=== PATIENT | female | born 1990 | race Hispanic/Latino ===

== ENCOUNTER 2021-11-14 09:14 | Emergency (ER) | payer SELFPAY ==
[2021-11-14 09:27] VITALS: BP 106/71; PULSE 77; RESP 18; TEMP 36.6; O2SAT 99
--- NOTE | 2021-11-14 09:44 | ED.EAR ---
HPI - Ear Problem General Chief complaint: Ear Stated complaint: Right Ear Pain Time Seen by Provider: 11/14/21 09:44 History of Present Illness HPI Narrative: Jade Mario is a 31 yo female with PMH [facility] ear pain that started 2 days ago. Has post nasal drip, no fever, no N/V/D Related Data Allergies Allergy/AdvReac Type Severity Reaction Status Date / Time No Known Allergies Allergy Verified 11/14/21 09:41 Review of Systems Review of Systems: CONSTITUTIONAL: Denies fever, chills, sweats. EYES: Denies visual changes, redness, discharge. ENT: Denies rhinorrhea, congestion, sore throat, right otalgia. CARDIOVASCULAR: Denies chest pain, palpitations, edema. RESPIRATORY: Denies dyspnea, wheezing, cough GASTROINTESTINAL: Denies abdominal pain, nausea, vomiting, diarrhea. GENITOURINARY: Denies dysuria, hematuria, abnormal discharge SKIN: Denies rash or itching. NEUROLOGIC: Denies numbness, or focal weakness. PSYCHIATRIC: Denies anxiety or depression. PMFSH Social History Social History (Updated 11/14/21 @ 09:50 by Erin Mcbride, PULP GRINDER AND BLENDER) Smoking status: Never smoker Alcohol intake: never Comments At time of signature, I agree with nursing past medical, surgical, social and family history. There is no relevant family history pertinent to the presenting complaint. Exam Narrative: GENERAL: This is a well-nourished, well-developed patient, in mild distress. HEAD: normocephalic, atraumatic. EYES: . Sclera clear/white. Vision is grossly intact. EARS: External ears normal, auditory canals erythema and with edema and drainage on R, . Hearing grossly intact. NOSE: External nose normal without nasal discharge, nares without redness, no rhinorrhea. THROAT: Mucous membranes moist, posterior pharynx erythema NECK: Neck supple, non-tender CARDIOVASCULAR: Regular rate and rhythm without murmurs, gallops, or rubs. RESPIRATORY: Clear to auscultation. Breath sounds equal bilaterally. No wheezes, rales, or rhonchi. GASTROINTESTINAL: Not done, SKIN: warm, intact with no suspicious lesions or rash, good texture and turgor. NEURO: awake, alert, and oriented to person, place and time. There were no obvious focal neurologic abnormalities. Steady gait EXTREMITIES: Normal range of motion. BACK: Nontender without deformity Course Course Emergency Course: Patient comes with right ear pain that started 2 days ago and is gotten to the point where it is throbbing Started on amoxicillin p.o. and eardrops take Tylenol or ibuprofen for pain Level of Care: Express Care Visit Vital Signs Vital signs: Vital Signs Temperature 97.8 F 11/14/21 09:27 Pulse Rate 77 11/14/21 09:27 Respiratory Rate 18 11/14/21 09:27 Blood Pressure 106/71 11/14/21 09:27 Pulse Oximetry 99 11/14/21 09:27 Oxygen Delivery Room Air 11/14/21 09:27 Temperature 97.8 F 11/14/21 09:27 Pulse Rate 77 11/14/21 09:27 Respiratory Rate 18 11/14/21 09:27 Blood Pressure 106/71 11/14/21 09:27 Pulse Oximetry 99 11/14/21 09:27 Oxygen Delivery Room Air 11/14/21 09:27 Medical Decision Making Differential Diagnosis Differential Diagnosis: Otitis media versus otitis externa versus eustachian tube dysfunction Vital Signs Vital Signs: Vital Signs Temperature 97.8 F 11/14/21 09:27 Pulse Rate 77 11/14/21 09:27 Respiratory Rate 18 11/14/21 09:27 Blood Pressure 106/71 11/14/21 09:27 Pulse Oximetry 99 11/14/21 09:27 Oxygen Delivery Room Air 11/14/21 09:27 Temperature 97.8 F 11/14/21 09:27 Pulse Rate 77 11/14/21 09:27 Respiratory Rate 18 11/14/21 09:27 Blood Pressure 106/71 11/14/21 09:27 Pulse Oximetry 99 11/14/21 09:27 Oxygen Delivery Room Air 11/14/21 09:27 Critical Care Time Critical Care Time Critical Care Time: No Discharge Plan Discharge Clinical Impression: Otitis media Qualifiers: Otitis media type: serous Chronicity: acute Laterality: rig
== END 2021-11-14 09:55 | disposition home or self-care (01) ==
PROVIDERS: Emergency Provider Nurse Practitioner
DX: H65.01 Acute serous otitis media, right ear (principal)
CPT/HCPCS: 99203; G0463

== ENCOUNTER 2024-09-14 10:28 | Emergency (ER) | payer SELFPAY ==
[2024-09-14 10:36] VITALS: BP 100/61; PULSE 62; RESP 18; TEMP 36.6; O2SAT 97
--- NOTE | 2024-09-14 10:40 | ED_ITS ---
HPI - Skin/Abscess/Foreign Bdy General Chief complaint: Skin/Abscess/Foreign Body Stated complaint: Skin Issues Source: patient Mode of arrival: ambulatory Limitations: no limitations History of Present Illness HPI narrative: 34 y/o female presented with c/o a skin lesion to the abdomen increasing in size and would like it removed. Pt states the lesion had been present for a long time, but in July she says it started to increase in size. Pt endorses bleeding from the site at times and says the site is tender. Also states her son has disabilities and often pinches it. Pt has used otc meds to remove it without i mprovement. Related Data Home Medications ?Medication ?Instructions ?Recorded ?Confirmed ?Last Taken ?Type etonogestrel 68 mg subdermal 1 implant subdermal ONCE 09/14/24 Unknown History implant (Nexplanon) Allergies Allergy/AdvReac Type Severity Reaction Status Date / Time No Known Allergies Allergy none Uncoded 09/14/24 10:33 Review of Systems Review of Systems: CONSTITUTIONAL: Denies body aches, fever, chills, or sweats. EYES: Denies visual changes, redness, or discharge. ENT: Denies rhinorrhea, congestion CARDIOVASCULAR: Denies chest pain, palpitations, or edema. RESPIRATORY: Denies cough or dyspnea. GASTROINTESTINAL: Denies abdominal pain, nausea, vomiting, or diarrhea. SKIN: reports skin changes to mole MUSCULOSKELETAL: Denies back pain, joint pain, or myalgia. NEUROLOGIC: Denies headache [facility] Social History Social History (System 11/22/21 @ 11:06 by Liliya Bosch) Smoking status: Never smoker Alcohol intake: never Comments At time of signature, I have reviewed and agree with nursing past medical, surgical, social and family history unless otherwise noted. Please see nursing chart for further information. There is no relevant family history pertinent to the presenting complaint Exam Narrative: GENERAL: Well-appearing EYES: conjunctivae clear, and EOMI. ENT: Mucous membranes moist. CHEST: Clear to auscultation. HEART: Regular rate and rhythm. SKIN: Warm, dry. Right upper abdomen with 1cm round raised dark erythematous skin lesion, tender with palpation. No drainage. no surrounding induration. NEURO: Alert and oriented x3. Course Course Emergency Course: Patient is aware of diagnosis, understands and agrees to treatment plan. Anticipatory guidance given. Patient agrees to follow-up as directed and is aware of reasons to seek care at the emergency department. Portions of this record may have been created with voice recognition software Level of Care: Express Care Visit Vital Signs Vital signs: Vital Signs Temperature 97.9 F 09/14/24 10:36 Pulse Rate 62 09/14/24 10:36 Respiratory Rate 18 09/14/24 10:36 Blood Pressure 100/61 09/14/24 10:36 Pulse Oximetry 97 09/14/24 10:36 Oxygen Delivery Room Air 09/14/24 10:36 Temperature 97.9 F 09/14/24 10:36 Pulse Rate 62 09/14/24 10:36 Respiratory Rate 18 09/14/24 10:36 Blood Pressure 100/61 09/14/24 10:36 Pulse Oximetry 97 09/14/24 10:36 Oxygen Delivery Room Air 09/14/24 10:36 Reviewed MDM - Skin/Abscess/Foreign Bdy MDM Narrative Medical decision making narrative: Discussed physical exam findings; right abdominal skin lesion which she reports has been changing in size x2 months. Advised contacting footwear sales representative for further evaluation and management as the site may require biopsy. She is aware we will not excise the lesion today. No apparent infection or surrounding cellulitis. v/u. Advised supportive measures and signs/symptoms to go to the ER. Pt is appropriate for outpt treatment and f/u. Differential Diagnosis Differential diagnosis: Likely abscess of skin or subcutaneous tissue, viral exa nthem, dermatophytosis, urticaria, herpes zoster, cellulitis, eczema, insect bites, impetigo and contact dermatitis Discharge Plan Discharge Clinical Impression: Changing skin lesion Patient Disposition: Home Condition: Stable Instructions: Antibiotic Form, Mole or Nevus Excision (DC) Additional Instructions: Dermatologists: [facility] [address] [phone] [facility] [address] [facility] [phone] [facility] [address] [phone] [facility] [address] [facility] [phone] Recommend establishing with a primary care provider, see the list provided and call today to schedule an appointment please follow up with a footwear sales representative for further evaluation and management of the abdominal skin lesion. Call today to schedule an appointment. Keep the skin lesion covered to reduce friction/rubbing/irritation. Cleanse the site daily with gentle soap and water. Go to the ER for worsening symptoms or concerns. Patient Language: Australian Prescriptions: No Action No Home Medications Follow-up/Referrals: PHYSICIAN,HOOKING MACHINE OPERATOR [Primary Care Provider] -
== END 2024-09-14 11:00 | disposition home or self-care (01) ==
PROVIDERS: Emergency Provider Nurse Practitioner Family
DX: L98.9 Disorder of the skin and subcutaneous tissue, unspecified (principal)
CPT/HCPCS: 99211; G0463

== ENCOUNTER 2024-09-20 13:55 | Emergency (ER) | payer SELFPAY ==
--- OUTSIDE RECORDS SUMMARY | 2024-09-20 13:57 | XMS_ITS | Referral Summary ---
Author Organization [facility] Address [address] [place] [address] Care Team Providers Care Nutter Up Name Role Phone Unknown, Notinfile Primary Care Provider Unavail able Unknown, Notinfile Unavailable Unavailable Encounters Date Type Department Care Team Description 09/16/2024 10:47 AM CDT - 09/16/2024 11:06 AM CDT Emergency [facility] Emergency Department [address] [place] [id number] Inflamed skin tag (Primary Dx) Discharge Disposition: Discharge to home or self care from Last 3 Months Allergies No known active allergies Medications prenat vit [id number], 6 [id number] mg capsule Take by mouth daily. Active acetaminophen (TYLENOL) 500 mg tablet Take 2 tablets (1,000 mg total) by mouth every 6 (six) hours as needed for pain. 120 tablet 9 Active albuterol HFA (PROVENTIL HFA,VENTOLIN HFA,PROAIR HFA) 90 mcg/actuation inhalerIndications :Acute Asthma Attack,Bronchospas m Prevention Inhale 2 puffs every 8 (eight) hours as needed for wheezing. 1 Inhaler 3 9 Active docusate sodium (COLACE) 100 mg capsuleIndications :constipation Take 1 capsule (100 mg total) by mouth daily. 90 capsule 9 Active ferrous sulfate 325 mg (65 mg of elemental iron) tabletIndications: Iron Deficiency Anemia Take 1 tablet (325 mg total) by mouth 3 (three) times a day with meals. 120 tablet 1 9 Active norethindrone (MICRONOR) 0.35 mg tabletIndications: Contraception Take 1 tablet (0.35 mg total) by mouth daily. 28 tablet 12 9 Active albuterol HFA (PROVENTIL HFA,VENTOLIN HFA,PROAIR HFA) 90 mcg/actuation inhaler Inhale 2 puffs every 4 (four) hours as needed for wheezing 1 each 2 5 03/29/19 26 Active Active Problems Problem Noted Date Diagnosed Date Encounter for screening for metabolic disorder 0 04/23/2018 wound infection 04/18/2018 Overview (04/18/2018): [facility] 04/18 - C/f evolving wound infection - Keflex 500mg BID rx given - Close follow up in clinic next week - Educated on keeping wound clean, and dry, as well as regular use of tylenol and ibuprofen to stay on top of incisional pain - Discussed return precautions and s/s of infection Elevated LFTs 04/11/2018 Thrombocytopenia 04/11/2018 UTI (urinary tract infection) 04/11/2018 Hypokalemia 04/11/2018 Lower extremity edema 04/11/2018 Abnormal Pap smear of cervix 04/11/2018 Overview (04/11/2018): [facility] 08/2016 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 No signs/symptoms of infection. # Heme: EBL 700 mL. No symptoms acute blood loss anemia. Thrombocytopenia, most recent plt ___. # CV/Pulm: Influenza A. Oxygen requirement___ # GI/: Tolerating PO. Adequate urine output, void trial now. Continue course of macrobid for UTI. # Pain: Controlled with above regimen. # DVT prophylaxis: Ambulating independently, sequential compression devices in place. # MOC: s/p hormonal IUD placement?? # MOF: # Disposition: Continue routine postoperative care Acute respiratory insufficiency 04/11/2018 Acute blood loss anemia 04/11/2018 Acute pain 04/11/2018 Influenza A 04/10/2018 Overview (04/10/2018): Admit to [facility]. Consents signed and placed in chart. #Elevated LFT -Presented to OSH with LE edema and found to have lab abnormalities -Plt 114, K 2.5, Cr 0.47, AST 55 -Admission labs: Plt 103, Cr 0.48, AST/JEAN PIERRE 59/32 -Normotensive, asymptomatic -Will send acute hepatitis panel #Influenza -Positive for Influenza A at OSH and started on Tamiflu -Tamiflu continued on admission 75mg BID x 5 day course -Droplet precautions -Sats decreased overnight. Will get CXR now #Thrombocytopenia -Plt 103, unknown baseline -Obtain PNL -No evidence of bleeding #UTI -Reports UTI at OSH (no records) and started on macrobid -UCx sent -Continue Macrobid x 5 day course #FWB -04/10: BSUS EFW 2988g (88%), vertex, anterior placenta, JOSE DE JESUS 31.92 (poly) -Reactive and reassuring -On cEFM due to patient being on 1L NC for LUIS ALBERTO #Hypokalemia -Pt reports taking potassium supplements during this -K 2.7 -> 80mg PO KCl given -Plan to repeat labs in 12-24 hours #?LUIS ALBERTO -Snoring when sleeping and desating to low 90s -Placed on 1L NC -cEFM while on oxygen #MWB -Primary OB - Dr. Gan in [place] -Rh positive/Ab negative -Need to obtain records -GBS unknown, collected and sent -MOF: breast -MOC: desires postplacental hormonal IUD Immunizations Immunization Administration Dates Next Due MMR 04/15/2018(Deferred: No longer needed - Patient is Rubella Immune) Social History Tobacco Use Types Packs/Day Years Used Date Smoking Tobacco: Never Smokeless Tobacco: Never Alcohol Use Standard Drinks/Week Comments No 0 (1 standard drink = 0.6 oz pur e alcohol) Personal Safety Answer Date Recorded Have you ever been in or are you currently in a harmful physical or emotional relationship or is someone making you feel afraid or unsafe? Denies 09/16/2024 Comments No Sex and Gender Information Value Date Recorded Sex Assigned at Not on file Legal Sex Female 8:44 PM LIQUOR GALLERY OPERATOR Gender Identity Not on file Sexual Orientation Not on file Last Filed Vital Signs Vital Sign Reading Time Taken Comments Blood Pressure 110/66 09/16/2024 10:18 AM CDT Pulse 84 09/16/2024 10:18 AM CDT Temperature 36.4 C (97.5 F) 09/16/2024 10:18 AM CDT Respiratory Rate 16 09/16/2024 10:21 AM CDT Oxygen Saturation 94% 09/16/2024 10:18 AM CDT Inhaled Oxygen Concentration - - Weight 72.1 kg (159 lb) 03/29/2024 9:04 AM LIQUOR GALLERY OPERATOR Height 165.1 cm (5' 5) 03/29/2024 9:04 AM LIQUOR GALLERY OPERATOR Body Mass Index 26.46 03/29/2024 9:04 AM LIQUOR GALLERY OPERATOR Plan of Treatment Not on file Procedures Procedure Name Priority Date/Time Associated Diagnosis Comments HEPATITIS PANEL, ACUTE Routine 04/10/2018 11:33 AM LIQUOR GALLERY OPERATOR from Last 3 Months or Most Recently Relevant to Health Maintenance Results * Hepatitis panel, acute (04/10/2018 11:33 AM LIQUOR GALLERY OPERATOR) Hep A IgM Nonreactive Nonreactive [facility] Comment: Interpretive Data If test is reported as GRAYZONE, new sample should be drawn in two weeks for testing. Current interpretive data was last revised on 2016. Hep B core IgM Nonreactive Nonreactive [facility] Comment: Interpretive Data If test is reported as GRAYZONE, new sample should be drawn for testing. Current interpretive data was last revised on 2016. Hep C Ab Nonreactive Nonreactive [facility] Comment: Interpretive Data Positive results should be confirmed by a molecular method. If positive, a second separately collected sample should be submitted for Hepatitis C Virus (HCV) RNA Detection and Quantitation by Real-Time Reverse Polysomnography Tech-PCR (RT-PCR). Current interpretive data was last revised on 2016. HepBsAg Nonreactive Nonreactive [facility] Blood specimen (specimen) 04/10/2018 11:33 AM LIQUOR GALLERY OPERATOR 04/10/2018 11:49 AM LIQUOR GALLERY OPERATOR Narrative [facility] - 04/10/2018 2:46 PM LIQUOR GALLERY OPERATOR us Iris Owens MD LAB MICROBIOLOGY - GENER AL ORDERABLES Edited Result - Final [facility] Department of [place] [address] from Last 3 Months or Most Recently Relevant to Health Maintenance Advance Directives For more information, please contact: [phone] * Full Code (Latest Code Status on File) Date Activated Date Inactivated Comments 04/11/2018 6:59 PM 04/15/2018 7:58 PM * Full Code Date Activated Date Inactivated Comments 04/09/2018 9:39 PM 04/11/2018 6:55 PM Care Teams Nutter Up Relationship Specialty Start Date End Date Unknown, Notinfile PCP - General 03/29/24 Unknown, Notinfile 03/29/24
--- OUTSIDE RECORDS SUMMARY | 2024-09-20 13:57 | XMS_ITS | Data Portability ---
Author Organization [facility] Address [address] [place] [address] Care Team Providers Care Supervisor Mixing Name Role Phone MEÑO MCGRATH Hybrid Corn Breeder TERESA MARQUEZ Primary Care Provider [phone] Assessment No assessment recorded. Plan of Treatment Reminders Order Date Submit Date Provider Last Modified By Organization Details Last Modified Time Details Appointments None recorded. Lab CMP, serum or plasma 2023 024 [facility], [address] [facility], [address], [place], [address], 11:18:01 CBC w/ auto diff 2023 024 [facility], [facility] [facility], [address], [place], [address], 11:18:04 lipid panel, serum 2023 024 [facility], [facility] [facility], [address], [place], [address], 11:18:00 HbA1c (hemoglob in A1c), blood 2023 024 [facility], [address] [facility], [address], [place], [address], 4 11:18:02 TSH + free T4, serum 2023 024 [facility], [address] [facility], [address], [place], [address], 4 11:17:59 pap, IG + reflex HPV 2022 023 [facility], [address] Jamel Kim, [facility], [place], [address], 3 20:09:06 CMP, serum or plasma 2020 021 [facility], [address] [facility] [address], [address], [place], [address], 1 15:02:54 CBC w/ auto diff 2020 021 [email or web address] [facility], [address] [place] [address] [address], [address], [place], [address], 1 15:29:44 TSH + free T4, serum 2020 021 [facility], [address] [place] [address] [address], [address], [place], [address], 1 15:02:54 HbA1c (hemoglob in A1c), blood [email or web address], [address] [place] [address] [address], [address], [place], [address], 1 16:42:26 CT + NG + TV, DNA, urine/swa b 2019 020 [facility], [address], [address], [place], [address], 0 20:07:46 test, urine 2019 020 pricilla In-Office Order, Internal Use Only DO Not Attach Compendium DO Not Attach Compendium, Do Not Delete/merge, [id number] 11:46:03 urinalysi s, dipstick 2019 020 [email or web address] In-Office Order, Internal Use Only DO Not Attach Compendium DO Not Attach Compendium, Do Not Delete/merge, [id number] 0 11:46:03 Referral cardiolog ist referral 2020 021 Carlito Bruno MD, [address] [facility], [place], [address], 10:02:39 Procedures None recorded. Surgeries None recorded. Imaging None recorded. Medication Orders multivita min tablet [address] [facility], [address] [place], [address], 14:34:08 Calcium with Vitamin D 600 mg-10 mcg (400 unit) tablet [email or web address] [facility], [address] [place], [address], 14:33:55 Patient TargetsNo targets recorded. 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 Referring Physician: Teresa Marquez, Dog Or Animal Sitter, Encounter Date: 06/21/2020 Results Created Date Observation Date Name Description Value Unit Range Abnormal Flag Note LastModifiedBy Organization Detail LastModifiedTime 04/06/19 20 04/06/2019 urina lysis , dipst ick Leukocytes Trace Not Available In-Offi ce Order Internal Use Only DO Not Attach Compendium DO Not Attach Compendium, Do Not Delete/merge, 04/06/2019 11:45:18 04/06/19 20 04/06/2019 urina lysis , dipst ick Nitrite negati ve Not Available In-Office Order Internal Use Only DO Not Attach Compendium DO Not Attach Compendium, Do Not Delete/merge, 04/06/2019 11:45:18 04/06/19 20 04/06/2019 urina lysis , dipst ick Urobilinogen .2 Not Available In-Of fice Order Internal Use Only DO Not Attach Compendium DO Not Attach Compendium, Do Not Delete/merge, 04/06/2019 11:45:18 04/06/19 20 04/06/2019 urina lysis , dipst ick Protein Negati ve Not Available In-Office Order Internal Use Only DO Not Attach Compendium DO Not Attach Compendium, Do Not Delete/merge, 04/06/2019 11:45:18 04/06/19 20 04/06/2019 urina lysis , dipst ick pH 7.0 Not Available In-Office Order Internal Use Only DO Not Attach Compendium DO Not Attach Compendium, Do Not Delete/merge, 04/06/2019 11:45:18 04/06/19 20 04/06/2019 urina lysis , dipst ick Blood Negati ve Not Available In-Office Order Internal Use Only DO Not Attach Compendium DO Not Attach Compendium, Do Not Delete/merge, 04/06/2019 11:45:18 04/06/19 20 04/06/2019 urina lysis , dipst ick Specific [place] 1.025 Not Available In-Off ice Order Internal Use Only DO Not Attach Compendium DO Not Attach Compendium, Do Not Delete/merge, 04/06/2019 11:45:18 04/06/19 20 04/06/2019 urina lysis , dipst ick Ketone Negati ve Not Available In-Office Order Internal Use Only DO Not Attach Compendium DO Not Attach Compendium, Do Not Delete/merge, [id number] 04/06/2019 11:45:18 04/06/19 20 04/06/2019 urina lysis , dipst ick Bilirubin Negati ve Not Available In-Office Order Internal Use Only DO Not Attach Compendium DO Not Attach Compendium, Do Not Delete/merge, [id number] 04/06/2019 11:45:18 04/06/19 20 04/06/2019 urina lysis , dipst ick Glucose Negati ve Not Available In-Office Order Internal Use Only DO Not Attach Compendium DO Not Attach Compendium, Do Not Delete/merge, [id number] 04/06/2019 11:45:18 04/06/19 20 04/06/2019 pregn sherif test, urine HCG negati ve Not Available In-Office Order Internal Use Only DO Not Attach Compendium DO Not Attach Compendium, Do Not Delete/merge, [id number] 04/06/2019 11:45:01 04/06/19 20 04/08/2019 CT + NG + TV, DNA, urine /swab chlamydia by LESA Negati ve negati ve Not Available [facility] ([facility]) [address] [place], [address], 04/08/2019 20:07:46 04/06/19 20 04/08/2019 CT + NG + TV, DNA, urine /swab gonococcus by LESA Negati ve negati ve Not Available [facility] ([facility]) [address] [place], [address], 04/08/2019 20:07:46 04/06/19 20 04/08/2019 CT + NG + TV, DNA, urine /swab trich vag by LESA Negati ve negati ve Not Available [facility] ([facility]) [address] [place], [address], 04/08/2019 20:07:46 06/21/19 23 06/21/2022 IGP,A PTIMA HPV,A GE GDLN age gdln acog testing 30-65 Not Available [facility] ([facility]) [address] [place], [address], 06/27/2022 20:09:05 06/21/19 23 06/23/2022 IGP, APTIM A HPV, RFX 16/18 ,45 HPV aptima Negati ve negati ve This nucle ic acid ampli ficat ion test detec ts fourt een high- risk HPV types (16,1 8,31, 33,35 ,39,4 5,51, 52,56 ,58,5 9,66, 68) witho ut diffe renti ation . Not Available [facility] ([facility]) [address] [facility], [place], [address], 06/27/2022 20:09:06 06/21/19 23 06/27/2022 IGP, APTIM A HPV, RFX 16/18 ,45 diagnosis: Commen t NEGAT DIAMOND FOR INTRA EPITH ELIAL DINAH N OR MYRA CONTEH . Not Available [facility] ([facility]) [address] [facility], [place], [address], 06/27/2022 20:09:06 06/21/19 23 06/27/2022 IGP, APTIM A HPV, RFX 16/18 ,45 specimen adequacy: Commen t Satis facto ry for evalu ation . Endoc ervic al and/o r squam ous metap lasti c cells (endo cervi felicitas compo nent) are prese nt. Not Available [facility] ([facility]) [address] [facility], [place], [address], 06/27/2022 20:09:06 06/21/19 23 06/27/2022 IGP, APTIM A HPV, RFX 16/18 ,45 clinician provided ICD10: Erika t Z01.4 19 Not Available [facility] ([facility]) [address] [facility], [place], [address], 06/27/2022 20:09:06 06/21/19 23 06/27/2022 IGP, APTIM A HPV, RFX 16/18 ,45 performed by: Commen t Morgan W Drege r, Cytoyudy jimenes (ASCP ) Not Available [facility] ([facility]) [address] [place], [address], 06/27/2022 20:09:06 06/21/19 23 06/27/2022 IGP, APTIM A HPV, RFX 16/18 ,45 . . Not Available [facility] ([facility]) [address] [place], [address], 06/27/2022 20:09:06 06/21/19 23 06/27/2022 IGP, APTIM A HPV, RFX 16/18 ,45 note: Erika jimenes The Pap smear is a scree rivera test desig alf to aid in the detec tion of bolivar ligna nt and malig nant condi tions of the uteri ne cervi x. It is not a diagn ostic proce dure and shoul d not be used as the sole means of detec ting cervi felicitas cance r. Both false -posi tive and false -nega tive repor ts do occur . Not Available [facility] ([facility]) [address] [place], [address], 06/27/2022 20:09:06 06/21/19 23 06/27/2022 IGP, APTIM A HPV, RFX 16/18 ,45 test methodology: Erika jimenes This liqui d based ThinP rep(R ) pap test was scree alf with the use of an image guide sayra palma. Not Available [facility] ([facility]) [address] [place], [address], 06/27/2022 20:09:06 06/21/19 23 06/27/2022 IGP, APTIM A HPV, RFX 16/18 ,45 HPV genotype reflex Erika jimenes Crite laura not met, HPV Genot ype not perfo rmed. Not Available [facility] ([facility]) [address] [place], [address], 06/27/2022 20:09:06 01/27/2001/28/2024 TSH+F REE T4 TSH 1.100 uIU/m L 0.450- 4.500 Not Available [facility] ([facility]) [address] [place], [address], 01/28/2024 11:17:59 01/27/2001/28/2024 TSH+F REE T4 T4,free(dire ct) 1.00 NG/dL 0.82-1 .77 Not Available [facility] ([facility]) [address] [place], [address], 01/28/2024 11:17:59 01/27/2001/28/2024 LIPID PANEL cholesterol, total 164 mg/dL 100-19 9 Not Available [facility] ([facility]) [address] [place], [address], 01/28/2024 11:18:00 01/27/20 24 01/28/2024 LIPID PANEL triglyceride s 185 mg/dL 0-149 above high normal Not Available [facility] ([facility]) [address] [place], [address], 01/28/2024 11:18:00 01/27/20 24 01/28/2024 LIPID PANEL HDL cholesterol 34 mg/dL >39 below low normal Not Available [facility] ([facility]) [address] [place], [address], 01/28/2024 11:18:00 01/27/2001/28/2024 LIPID PANEL VLDL cholesterol felicitas 32 mg/dL 5-40 Not Available [facility] ([facility]) [address] [place], [address], 01/28/2024 11:18:00 01/27/20 24 01/28/2024 LIPID PANEL LDL chol calc ([facility]) 98 mg/dL 0-99 Not Available [facility] ([facility]) [address] [facility] [place], [address], 01/28/2024 11:18:00 01/27/20 24 01/28/2024 COMP. METAB OLIC PANEL (14) glucose 102 mg/dL 70-99 above high normal Not Available [facility] ([facility]) [address] [facility] [place], [address], 01/28/2024 11:18:01 01/27/20 24 01/28/2024 COMP. METAB OLIC PANEL (14) BUN 10 mg/dL 6-20 Not Available [facility] ([facility]) [address] [facility] [place], [address], 01/28/2024 11:18:01 01/27/20 24 01/28/2024 COMP. METAB OLIC PANEL (14) creatinine 0.61 mg/dL 0.57-1 .00 Not Available [facility] ([facility]) [address] [place], [address], 01/28/2024 11:18:01 01/27/20 24 01/28/2024 COMP. METAB OLIC PANEL (14) eGFR 120 mL/mi n/1.7 3 >59 Not Available [facility] ([facility]) [address] [place], [address], 01/28/2024 11:18:01 01/27/20 24 01/28/2024 COMP. METAB OLIC PANEL (14) BUN/creatini ne ratio 16 9-23 Not Available [facility] ([facility]) [address] [place], [address], 01/28/2024 11:18:01 01/27/20 24 01/28/2024 COMP. METAB OLIC PANEL (14) sodium 143 mmol/ L 134-14 4 Not Available [facility] ([facility]) [address] [place], [address], 01/28/2024 11:18:01 01/27/20 24 01/28/2024 COMP. METAB OLIC PANEL (14) potassium 4.0 mmol/ L 3.5-5. 2 Not Available [facility] ([facility]) [address] [facility], [place], [address], 01/28/2024 11:18:01 01/27/20 24 01/28/2024 COMP. METAB OLIC PANEL (14) chloride 107 mmol/ L 96-106 above high normal Not Available [facility] ([facility]) [address] [facility], [place], [address], 01/28/2024 11:18:01 01/27/20 24 01/28/2024 COMP. METAB OLIC PANEL (14) carbon dioxide, total 25 mmol/ L 20-29 Not Available [facility] ([facility]) [address] [facility] [place], [address], 01/28/2024 11:18:01 01/27/20 24 01/28/2024 COMP. METAB OLIC PANEL (14) calcium 9.0 mg/dL 8.7-10 .2 Not Available [facility] ([facility]) [address] [facility] [place], [address], 01/28/2024 11:18:01 01/27/20 24 01/28/2024 COMP. METAB OLIC PANEL (14) protein, total 6.3 g/dL 6.0-8. 5 Not Available [facility] ([facility]) [address] [facility] [place], [address], 01/28/2024 11:18:01 01/27/20 24 01/28/2024 COMP. METAB OLIC PANEL (14) albumin 3.9 g/dL 3.9-4. 9 Not Available [facility] ([facility]) [address] [facility] [place], [address], 01/28/2024 11:18:01 01/27/20 24 01/28/2024 COMP. METAB OLIC PANEL (14) globulin, total 2.4 g/dL 1.5-4. 5 Not Available [facility] ([facility]) [address] [place], [address], 01/28/2024 11:18:01 01/27/20 24 01/28/2024 COMP. METAB OLIC PANEL (14) bilirubin, total 0.3 mg/dL 0.0-1. 2 Not Available [facility] ([facility]) [address] [place], [address], 01/28/2024 11:18:01 01/27/20 24 01/28/2024 COMP. METAB OLIC PANEL (14) alkaline phosphatase 91 IU/L 44-121 Not Available [facility] ([facility]) [address] [place], [address], 01/28/2024 11:18:01 01/27/20 24 01/28/2024 COMP. METAB OLIC PANEL (14) AST (SGOT) 20 IU/L 0-40 Not Available [facility] ([facility]) [address] [place], [address], 01/28/2024 11:18:01 01/27/20 24 01/28/2024 COMP. METAB OLIC PANEL (14) ALT (SGPT) 21 IU/L 0-32 Not Available [facility] ([facility]) [address] [place], [address], 01/28/2024 11:18:01 01/27/20 24 01/28/2024 HEMOG LOBIN A1C hemoglobin A1C 6.0 % 4.8-5. 6 above high normal Predi abete s: 5.7 - 6.4 Diabe jorgea lberto: >6.4 Glyce marcel contr ol for adult s with diabe jorge alberto: <7.0 Not Available [facility] ([facility]) [address] [place], [address], 01/28/2024 11:18:02 01/27/20 24 01/28/2024 CBC WITH DIFFE RENTI AL/PL ATELE T WBC 6.8 x10e3 /uL 3.4-10 .8 Eff ectiv e Decem gabrielle 2023 profi harlan [id number] 5 WBC will be made* * non-o rdera ble as a stand -kp e order code. Not Available [facility] ([facility]) [address] [facility], [place], [address], 01/28/2024 11:18:03 01/27/20 24 01/28/2024 CBC WITH DIFFE RENTI AL/PL ATELE T RBC 4.69 x10e6 /uL 3.77-5 .28 Not Available [facility] ([facility]) [address] [place], [address], 01/28/2024 11:18:03 01/27/20 24 01/28/2024 CBC WITH DIFFE RENTI AL/PL ATELE T hemoglobin 13.3 g/dL 11.1-1 5.9 Not Available [facility] ([facility]) [address] [facility], [place], [address], 01/28/2024 11:18:03 01/27/20 24 01/28/2024 CBC WITH DIFFE RENTI AL/PL ATELE T hematocrit 41.4 % 34.0-4 6.6 Not Available [facility] ([facility]) [address] [facility], [place], [address], 01/28/2024 11:18:03 01/27/20 24 01/28/2024 CBC WITH DIFFE RENTI AL/PL ATELE T MCV 88 fL 79-97 Not Available [facility] ([facility]) [address] [facility], [place], [address], 01/28/2024 11:18:03 01/27/20 24 01/28/2024 CBC WITH DIFFE RENTI AL/PL ATELE T MCH 28.4 pg 26.6-3 3.0 Not Available [facility] ([facility]) [address] [facility], [place], [address], 01/28/2024 11:18:03 01/27/20 24 01/28/2024 CBC WITH DIFFE RENTI AL/PL ATELE T MCHC 32.1 g/dL 31.5-3 5.7 Not Available [facility] ([facility]) [address] [facility], [place], [address], 01/28/2024 11:18:03 01/27/20 24 01/28/2024 CBC WITH DIFFE RENTI AL/PL ATELE T RDW 13.7 % 11.7-1 5.4 Not Available [facility] ([facility]) [address] [facility], [place], [address], 01/28/2024 11:18:03 01/27/20 24 01/28/2024 CBC WITH DIFFE RENTI AL/PL ATELE T platelets 183 x10e3 /uL 150-45 0 Not Available [facility] ([facility]) [address] [facility], [place], [address], 01/28/2024 11:18:03 01/27/20 24 01/28/2024 CBC WITH DIFFE RENTI AL/PL ATELE T neutrophils 58 % notest ab. Not Available [facility] ([facility]) [address] [facility], [place], [address], 01/28/2024 11:18:03 01/27/20 24 01/28/2024 CBC WITH DIFFE RENTI AL/PL ATELE T lymphs 32 % notest ab. Not Available [facility] ([facility]) [address] [facility], [place], [address], 01/28/2024 11:18:03 01/27/20 24 01/28/2024 CBC WITH DIFFE RENTI AL/PL ATELE T monocytes 6 % notest ab. Not Available [facility] ([facility]) [address] [facility], [place], [address], 01/28/2024 11:18:03 01/27/2001/28/2024 CBC WITH DIFFE RENTI AL/PL ATELE T eos 3 % notest ab. Not Available [facility] ([facility]) [address] [facility], [place], [address], 01/28/2024 11:18:03 01/27/20 24 01/28/2024 CBC WITH DIFFE RENTI AL/PL ATELE T basos 1 % notest ab. Not Available [facility] ([facility]) [address] [facility], [place], [address], 01/28/2024 11:18:03 01/27/20 24 01/28/2024 CBC WITH DIFFE RENTI AL/PL ATELE T neutrophils (absolute) 3.9 x10e3 /uL 1.4-7. 0 Not Available [facility] ([facility]) [address] [facility], [place], [address], 01/28/2024 11:18:03 01/27/20 24 01/28/2024 CBC WITH DIFFE RENTI AL/PL ATELE T lymphs (absolute) 2.2 x10e3 /uL 0.7-3. 1 Not Available [facility] ([facility]) [address] [place], [address], 01/28/2024 11:18:03 01/27/20 24 01/28/2024 CBC WITH DIFFE RENTI AL/PL ATELE T monocytes(ab solute) 0.4 x10e3 /uL 0.1-0. 9 Not Available [facility] ([facility]) [address] [place], [address], 01/28/2024 11:18:03 01/27/20 24 01/28/2024 CBC WITH DIFFE RENTI AL/PL ATELE T eos (absolute) 0.2 x10e3 /uL 0.0-0. 4 Not Available [facility] ([facility]) [address] [facility], [place], [address], 01/28/2024 11:18:03 01/27/20 24 01/28/2024 CBC WITH DIFFE RENTI AL/PL ATELE T baso (absolute) 0.0 x10e3 /uL 0.0-0. 2 Not Available [facility] ([facility]) [address] [facility], [place], [address], 01/28/2024 11:18:03 01/27/20 24 01/28/2024 CBC WITH DIFFE RENTI AL/PL ATELE T immature granulocytes 0 % notest ab. Not Available [facility] ([facility]) [address] [facility], [place], [address], 01/28/2024 11:18:03 01/27/20 24 01/28/2024 CBC WITH DIFFE RENTI AL/PL ATELE T immature grans (abs) 0.0 x10e3 /uL 0.0-0. 1 Not Available [facility] ([facility]) [address] [facility], [place], [address], 01/28/2024 11:18:03 Result Notes None recorded. 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 YARA Goodman - [facility] 9 16:04:25 Bacterial vaginosis 511047490 Active 2017 Kevin kim [place] - [facility] 9 16:04:25 Chlamydia l infection 229011887 Active 2017 Kevin kim [place] - [facility] 9 16:04:25 Abnormal cervical Papanicol aou smear 971515439 Active 2017 YARA Goodman - [facility] 9 16:04:25 Chlamydia l infection 509708215 Completed 2017 YARA Goodman - [facility] 9 16:04:25 Group B Streptoco ccus carrier 810150280712 3 Completed 2017 YARA Goodman [facility] 9 16:04:25 Bacterial vaginosis 746484916 Completed 2017 YARA Goodman [facility] 9 16:04:25 Abnormal cervical Papanicol aou smear 878620705 Completed 2017 YARA Goodman [facility] 9 16:04:25 59518547 Completed 201710/28/2017 YARA Goodman [facility] 8 10:46:25 Genital herpes simplex 63341089 Completed 2017 YARA Goodman [facility] 9 16:04:25 Genital herpes simplex 78597663 Active 2017 YARA Goodman [facility] 9 16:04:25 Urogenita l infection by Trichomon as vaginalis 55776505 Completed 2017 YARA Goodman - [facility] 9 16:04:25 Urogenita l infection by Trichomon as vaginalis 34179899 Active 2017 YARA Goodman [facility] 9 16:04:25 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 Procedures Surgical History Date Name Laterality Status Provider Name and Address Organization Details Recorded Time 06/21/19 23 Date of Last Pap Smear completed Yolie Lane [facility] 06/20/2022 10:46:38 05/06/19 19 Control Implant Insertion completed Elza Alva MA [facility] 05/05/2018 15:35:21 04/11/19 19 delivery completed Kevin Gan [facility] 05/05/2018 14:57:14 03/19/19 18 IUD Removal completed Elza Alva MA [facility] 03/19/2017 15:38:16 [address] Yolie [address] MA [facility] 06/20/2022 10:48:45 Imaging Results None recorded. Procedure Notes None recorded. Medical Equipment None Reported. Allergies No known drug allergies Medications Name Sig Start Date Stop Date Status Note LastModified by Organization Details LastModified Time multivitami n tablet Take 1 tablet every day by oral route. 06/21 completed Not Available Not Available Not Available amoxicillin 500 mg capsule TAKE 1 CAPSULE BY MOUTH EVERY 8 HOURS FOR 10 DAYS 06/20 completed Not Available Not Available Not Available Mirena 21 mcg/24 hr (up to 8 years) 52 mg intrauterin e device Take by intrauter ine route. 10/28 completed Not Available Not Available Not Available azithromyci n 250 mg tablet TAKE 2 TABLETS (500 MG) BY ORAL ROUTE ONCE DAILY FOR 1 DAY THEN 1 TABLET (250 MG) BY ORAL ROUTE ONCE DAILY FOR 4 DAYS 11/25 completed Not Available Not Available Not Available ibuprofen 800 mg tablet Take 1 tablet every 6 hours by oral route. 07/07 completed Not Available Not Available Not Available fluconazole 150 mg tablet TAKE 1 TABLET BY MOUTH ONCE DAILY FOR 28 DAYS 01/26 completed Not Available Not Available Not Available metronidazo le 0.75 % (37.5 mg/5 gram) vaginal gel Insert 1 applicato rful every day by vaginal route at bedtime for 5 days. 04/06 completed Not Available Not Available Not Available penicillin V potassium 500 mg tablet Take 1 tablet twice a day by oral route for 10 days. 03/19 completed Not Available Not Available Not Available metronidazo le 500 mg tablet Take 1 tablet twice a day by oral route around the clock for 10 days. 04/06 completed Not Available Not Available Not Available sulfamethox azole 800 mg-trimetho prim 160 mg tablet TAKE 1 TABLET BY MOUTH EVERY 12 HOURS FOR 7 DAYS 01/26 completed Not Available Not Available Not Available aspirin 81 mg tablet,scout yed release Take 2 tablets every day by oral route. 05/05 completed Not Available Not Available Not Available Condoms-Pre m Lubricated Take 1 device as needed by miscell. route as needed. 06/21 completed Not Available Not Available Not Available acyclovir 800 mg tablet Take 1 tablet every day by oral route as directed. 05/05 completed Not Available Not Available Not Available Vitamin tablet Take 1 tablet every day by oral route as directed for 90 days. 07/07 completed Not Available Not Available Not Available DOK 100 mg capsule 07/07 completed Not Available Not Available Not Available cephalexin 500 mg capsule 07/07 completed Not Available Not Available Not Available cyanocobala min (vit B-12) 1,000 mcg/mL injection solution Inject 1 mL every month by intramusc ular route. 05/05 completed Not Available Not Available Not Available ferrous sulfate 325 mg (65 mg iron) tablet Take 1 tablet twice a day by oral route. 07/07 completed Not Available Not Available Not Available progesteron e micronized 200 mg capsule 05/05 completed Not Available Not Available Not Available folic acid 1 mg tablet Take 4 tablets every day by oral route. 05/05 completed Not Available Not Available Not Available norethindro ne (contracept diamond) 0.35 mg tablet 05/05 completed Not Available Not Available Not Available clotrimazol e 1 % topical cream APPLY CREAM TOPICALLY TWICE DAILY 06/20 completed Not Available Not Available Not Available Ventolin HFA 90 mcg/actuati on aerosol inhaler 07/07 completed Not Available Not Available Not Available oxycodone 5 mg tablet 05/05 completed Not Available Not Available Not Available neomycin-po lymyxin-hyd rocort 3.5 mg-10,000 unit/mL-1 % ear drops,susp INSTILL 4 DROPS INTO RIGHT EAR EVERY 8 HOURS FOR 10 DAYS 06/20 completed Not Available Not Available Not Available Seasonique 0.15 mg-30 mcg (84)/10 mcg(7) tablets,3 month dose pack Take 1 tablet every day by oral route. 03/19 completed Not Available Not Available Not Available ferrous gluconate 324 mg (38 mg iron) tablet Take 1 tablet 3 times a day by oral route. 07/07 completed Not Available Not Available Not Available ferrous gluconate 325 mg (27 mg iron) tablet Take 1 tablet twice a day by oral route. 05/05 completed Not Available Not Available Not Available calcium 600 mg (as carbonate)- vitamin D3 10 mcg (400 unit) capsule Take 1 capsule twice a day by oral route. 07/07 completed Not Available Not Available Not Available Calcium with Vitamin D 600 mg-10 mcg (400 unit) tablet Take 1 tablet twice a day by oral route. 06/21 completed Not Available Not Available Not Available Nexplanon 68 mg subdermal implant Inject 1 implant by subcutane ous route. 2018 active Not Available Not Available Not Avai lable ferrous gluconate 246 mg (28 mg iron) tablet Take 1 tablet twice a day by oral route. 05/05 completed Not Available Not Available Not Available calcium 600 mg (as carbonate)- vitamin D3 20 mcg (800 unit) tablet Take 1 tablet twice a day by oral route for 30 days. 10/28 completed Not Available Not Available Not Available Vitamins Plus Low Iron 27 mg iron-1 mg tablet Take 1 tablet every day by oral route. 07/07 completed Not Available Not Available Not Available Vitals Date Recorded Body height Body mass index (BMI) Body weight Systolic And Diastolic Provider Name and Address Organization Details Last Updated DateTime 04/06/2019 157.48 cm 29.6 kg/m2 64076.96 g 90/62 mm[Hg] Elza Alva [place] [facility] 04/06/2019 11:37:57 Date Recorded Body height Body mass index (BMI) Body weight Systolic And Diastolic Provider Name and Address Organization Details Last Updated DateTime 06/20/2022 151.13 cm 40.3 kg/m2 89470.25 g 108/68 mm[Hg] Yolie Lane MA [facility] 06/20/2022 10:53:59 Date Recorded Body weight Body mass index (BMI) Body height Heart rate Oxygen saturation Oxygen saturation in Arterial blood by Pulse oximetry Systolic And Diastolic Provider Name and Address Organization Details Last Updated DateTime 1 54470.9 8 g 39.6 kg/m2 151.13 cm 70 /min 98 % 98 % 104/70 mm[Hg] Yoly Madrid MA [facility] 1 14:38:34 Date Recorded Body height Provider Name an d Address Organization Details Last Updated DateTime 11/22/2022 151.13 cm Jessica Negrete [facility] 023 15:34:28 Date Recorded Body height Body mass index (BMI) Body weight Heart rate Oxygen saturation Oxygen saturation in Arterial blood by Pulse oximetry Systolic And Diastolic Provider Name and Address Organization Details Last Updated DateTime 4 151.13 cm 41.9 kg/m2 23507.9 9 g 60 /min 98 % 98 % 98/62 mm[Hg] Yoly Madrid MA [facility] 4 10:45:23 Social History Question Answer Notes LastModified by Organizat ion Details LastModified Time Tobacco Smoking Status Never Smoker Elza Alva MA null, [facility] 08/28/2016 11:35:32 Do You Have An Advance Directive? No Information not available 08/28/2016 If You Are , What Was Your Level Of Alcohol Consumption Prior To ? None Information not available 10/28/2017 Is Blood Transfusion Acceptable In An Emergency? Yes Information not available 08/28/2016 What Is Your Level Of Caffeine Consumption? Occasional Information not available 08/28/2016 Live With Cats/exposure To Cat Litter No Information not available 10/28/2017 How Much Tobacco Do You Chew? None Information not available 08/28/2016 In The 14 Days Before Symptom Onset, Have You Had Close Contact With A Laboratory-confir med COVID-19 While That Case Was Ill? No Information not available 06/21/2020 In The 14 Days Before Symptom Onset, Have You Had Close Contact With A Person Who Is Under Investigation For COVID-19 While That Person Was Ill? No Information not available 06/21/2020 Have You Been To An Area Known To Be High Risk For COVID-19? No Information not available 06/21/2020 What Type Of Diet Are You Following? REGULAR Information not available 08/28/2016 Which Illicit Or Recreational Drugs Have You Used? None Information not available 08/28/2016 Education 12 Information no t available 08/28/2016 Have There Been Any Changes To Your Family Or Social Situation? No Information no t available 10/28/2017 Frequent Air Travel No Information not available 10/28/2017 Illicit Drugs Pre- None Information not available 10/28/2017 Live Alone Or With Others? With Others Information not available 08/28/2016 Marital Status Domestic Partner Information not available 10/28/2017 What Was The Date Of Your Most Recent Tobacco Screening? 01/27/2024 Information not available 01/27/2024 How Many Children Do You Have? 2 Information not available 08/28/2016 Are There Any Occupational Health Risks Where You Work? None Information not available 10/28/2017 Performs Monthly Self-breast Exam? Yes Information no t available 08/28/2016 Do You Use Protection During Sex? No Information not available 08/28/2016 What Is Your Relationship Status? Information not available 08/28/2016 Seat Belts Used Routinely Yes Information not available 08/28/2016 Are You Sexually Active? Yes Information not available 08/28/2016 Are You Passively Exposed To Smoke? No Information no t available 10/28/2017 How Much Tobacco Do You Smoke? No Information not available 04/06/2019 Smoking Pre- No Information not available 10/28/2017 General Stress Level Medium Information not available 08/28/2016 Do You Use Sunscreen Routinely? No Information not available 08/28/2016 Supplements OTC Prenatals, Cb-rma Information not available 10/28/2017 Has Tobacco Cessation Counseling Been Provided? No Information not available 06/21/2020 On What Date Was Tobacco Cessation Counseling Provided? 01/27/2024 Information not available 01/27/2024 How Many Years Have You Smoked Tobacco? 0 Information not available 04/06/2019 Sex: Unknown Functional Status Question Answer Note LastModified by Organizat ion Details LastModified Time What is your level of alcohol consumption? None Information not available 01/27/2024 Do you or have you ever used smokeless tobacco? Never used smokeless tobacco Information not available 04/06/2019 Are you currently employed? No Information not available 08/28/2016 What is your occupation? unemployed Information not available 08/28/2016 Do you or have you ever used e-cigarettes or vape? Never used electronic cigarettes Information not available 04/06/2019 What is your exercise level? Occasional Information not available 08/28/2016 Mental Status None recorded. Family History Relationship Description Onset Age of this Age Resolved Age Notes LastModified by Organization Details LastModified Time Maternal Aunt Malignant neoplasm of ovary [email or web address] Not available 2022 10:51:30 Medical History Condition Response Coronary Artery Disease N Other N High Blood Pressure N Atrial Fibrillation N Breast Cancer N Kidney or Bladder Problems N Thyroid Problems N Lung Disease N Depression N Blood Clots N GI Problems N Acne N Breast Problem N Skin Problems N Eating Disorder N Anemia N Anesthesia Complications N Heart Attack ([place]) N Headaches/Migraines N Anxiety Disorder N Ovarian Cancer N Diabetes N Muscle, Joint, or Bone Problems N Blood Transfusions N Seizures/Epilepsy N Infertility N Polyps N Acid Reflux (GERD) N Cancer N Stroke N Abuse/Domestic Violence N Asthma N Allergies N Endometriosis N High Cholesterol N Hepatitis N Liver Disease N Heart Disease N Headaches N Pre-Eclampsia N Osteoporosis N Heart Failure N Gynecological History Statement/Question Response Abnormal Pap Y Date of LMP 01/13/2024 On BCP's at Conception? N STIs/STDs N HPV Vaccine Y Duration of Flow (days) 3 Age at Menarche 13 Current Control Method Implant Age at First Child 18 Sexually Active? Y Menses Monthly N Date of Last Pap Smear 06/20/2022 Sexual Problems? N LMP Approximate Desired Control Method Implant Obstetrics History GPAL:G 4 P 2 1 1 3 Type Value Multiple Births 0 Full Term 2 Induced 0 Spontaneous 1 Premature 1 Living 3 Ectopics 0 Total 4 Immunizations Vaccine Type Date Status Note Provider Nam e and Address Organization Details Recorded Time COVID-19, mRNA, LNP-S, PF, 100 mcg/0.5mL dose or 50 mcg/0.25mL dose 08/03/[address] [place] null, [place] [facility] 06/20/2022 10:50:14 COVID-19, mRNA, LNP-S, PF, 100 mcg/0.5mL dose or 50 mcg/0.25mL dose 08/31/[address] [place], [place] [facility] 06/20/2022 10:50:14 Influenza, split virus, quadrivalent, PF 12/27/2017 completed Not Available [facility] 0 02:36:30 HPV9 07/07/2018 completed Not Available [facility] 03/21/2019 02:37:34 HPV9 04/10/2019 completed Elza Al[place], [place] [facility] 04/10/2019 12:42:57 Influenza, split virus, quadrivalent, PF 11/22/2022 completed Liliya Valderrama MD Attn: [address] [place], [address], [place] [facility] 11/29/2022 15:27:12 Tdap 01/27/2024 completed GABRIELLE MORE Attn: [address] [place], [address], [place] [facility] 01/27/2024 11:48:12 Past Encounters Encounter ID Performer Location Encounter Start Date Encounter Closed Date Diagnosis/Indication Diagnosis SNOMED-CT Code Diagnosis ICD10 Code Diagnosis Note [id number] MD Sagar Robertson (TOLL SERVICE OBSERVER) [address] [place] [address] 28294-107 0 08/28/2016 10:23:47 08/30/2016 15:40:32 Gynecologic examination 58830285 Z01.419 Exposure t o sexually transmissible disorder 540030900 Z20.2 Surveillan ce of intrauterine device contraception done 8911390023 46137 Z30.40 Family dia nning surveillance 126950784 Z30.09 [id number] MD Sagar Robertson (TOLL SERVICE OBSERVER) [address] [place] [address] 15579-543 0 03/19/2017 14:20:32 03/19/2017 16:58:07 Bacterial vaginosis 792599744 N76.0 Exposure t o sexually transmissible disorder 310797524 Z20.2 Removal of intrauterine device 08864645 Z30.432 Family dia nning surveillance 503714246 Z30.09 Chlamydial infection [address] reptococcus carrier 3502238658 103 Z22.982 [id number] MD Sagar Robertson (TOLL SERVICE OBSERVER) [address] [place] [address] [phone] 0 10/28/2017 10:00:58 10/28/2017 11:38:51 Routine care 186074412 Z34.[address] reptococcus carrier 7102651403 103 Z22.330 Chlamydial infection 105 189516 A74.9 Bacterial vaginosis 4197 32809 N76.0 Abnormal c ervical Papanicolaou smear 304086903 R87.619 Past pregn sherif history of miscarriage 229414225 Z87.59 Genital he rpes simplex 25756779 A60.9 [id number] MD Sagar Robertson (TOLL SERVICE OBSERVER) [address] [place] [address] 74264-650 0 11/25/2017 10:14:49 11/25/2017 11:26:05 Routine care 625658424 Z34.90 Chlamydial infection 105 692220 A74.9 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 Genital he rpes simplex 79006464 A60.[address] reptococcus carrier 5872727205 103 Z22.513 [id number] MD Sagar Robertson (TOLL SERVICE OBSERVER) [address] [place] [address] [phone] 0 12/26/2017 10:14:20 12/26/2017 11:21:12 Homozygous methylenetetrahydrofo late reductase mutation 2615846189 65120 E72.12 monthly B12 Routine an tenatal care 884080222 Z34.90 Administra tion of influenza vaccine 73293079 Z23 Genital he rpes simplex 93845794 A60.9 Urogenital infection by Trichomonas vaginalis 44288898 A59.00 Chlamydial infection [address] reptococcus carrier 9873022722 103 Z22.982 [id number] MD Sagar Robertson (TOLL SERVICE OBSERVER) [address] [place] [address] [phone] 0 02/04/2018 15:49:15 02/05/2018 12:22:58 Routine care 266082050 Z34.90 Homozygous methylenetetrahydrofo late reductase mutation 1883090635 00313 E72.12 monthly B12- received on 02/04/2018 Genital he rpes simplex 34834158 A60.[address] reptococcus carrier 7181654500 103 Z22.330 Chlamydial infection 105 643364 A74.9 screening 2437 44068 Z36.9 [id number] [facility] OBSERV[facility]) [address] [place] [address] [id number] 0 03/10/2018 10:24:22 03/10/2018 14:08:16 Routine care 910663631 Z34.90 Homozygous methylenetetrahydrofo late reductase mutation 7586112304 59341 E72.12 monthly B12- received on 03/10/[address] reptococcus carrier 4814517831 103 Z22.330 Chlamydial infection 105 872045 A74.9 Anemia 951084475 D64.9 [id number] MD Sagar Robertson (TOLL SERVICE OBSERVER) [address] [place] [address] 16438-250 0 05/05/2018 14:22:09 05/05/2018 17:22:24 care 336946748 Z39.2 Deliveries by 410718077 O82 Homozygous methylenetetrahydrofo late reductase mutation 7748760154 42149 E72.12 Anemia 355700695 D64.9 Genital he rpes simplex 31489328 A60.9 Family dia nning surveillance 585945727 Z30.09 Nexplanon insertion today Implantati on of subcutaneous contraceptive 123678740 Z30.017 Past pregn sherif history of miscarriage 029280781 Z87.59 [id number] Kevin Gan MD [facility] (TOLL SERVICE OBSERVER) [address] [place] [address] [id number] 0 07/07/2018 14:42:00 07/08/2018 14:26:00 care 999296791 Z39.2 Exposure t o sexually transmissible disorder 124957541 Z20.2 Active or passive immunization 023932133 Z23 Homozygous methylenetetrahydrofo late reductase mutation 0024200762 78844 E72.12 Genital he rpes simplex 26161004 A60.[address] reptococcus carrier 1618168359 103 Z22.330 Chlamydial infection 105 931724 A74.9 Urogenital infection by Trichomonas vaginalis 06240275 A59.00 [id number] Kevin Gan MD [facility] (TOLL SERVICE OBSERVER) [address] [place] [address] [id number] 0 04/06/2019 11:05:46 04/07/2019 12:50:05 Administration of viral vaccine 52284306 Z23 At [facility] risk of sexually transmitted infection 255088710 Z20.2 Surveillan ce of subcutaneous contraceptive implant 384334747 Z30.46 Family dia nning surveillance 536745646 Z30.09 Homozygous methylenetetrahydrofo late reductase mutation 7918948005 96015 E72.12 [id number] GABRIELLE MORE [facility] [address] [place] [address] 06/21/2020 14:07:32 06/23/2020 16:30:26 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 Her son was diagnosed at and had heart issues and well as muscle and vascular issues. ROS + for palpitatio ns, sob on exertion, dizziness, left lower leg pain. Will send to cardiology to obtain test for heart, likely echo, xray. Today on exam RRR. No murmurs. Adult heal th examination 410011880 Z00.00 BMI 39.6. advised weight loss. Will get to cardiology . - labs today - discussed diet: avoid sugars, pasta, tortillas, bread, rice, potatoes - exercise 30 min 5x week [id number] GABRIELLE GALVIN [facility] (TOLL SERVICE OBSERVER) [address] [place] [address] 06/20/2022 10:34:10 06/21/2022 14:00:37 Gynecologic examination 58250326 Z01.419 Normal gynecologi c exam today.Cerv ical cancer screening: Last Pap 07/07/2018 NILM, updated todayBreas t cancer screening: Reviewed recommenda tions for initiation at age 40 with annual screening. Discussed SBEContrac eption: Nexplanon (discussed replacemen t due to expiration )Diet/exer cise: Counseled regarding importance of physical activity, healthy diet and appropriat e calcium intake. [id number] Kishan Neumnan MD [facility] [address] [place] [address] 11/22/2022 14:13:44 11/30/2022 09:52:25 Administration of influenza vaccine 18692744 Z23 [id number] Anil Ordonez MD [facility] [address] [place] [address] 01/27/2024 10:31:21 01/27/2024 11:57:31 Adult health examination 004384706 Z00.00 patient not seen since 2020 here for wellness. ROS+ FOR FATIGUE. We discussed weight gain since 2020 and diet. advised cutting out soda. she denies cp, sob, palpitatio ns. Denies depression and has negative PHQ. -tetanus shot today- labs today - discussed diet: avoid sugars, pasta, tortillas, bread, rice, potatoes - exercise 30 min 5x week Administra tion of diphtheria, pertussis, and tetanus vaccine 310715996 Z23 Morbid obesity 394051708 E66.01 41.9 Health Concerns Section Related Observation LastModified by Organization Beth maher LastModified Time None Recorded Concern Status LastModified by Organization Details LastModified Time None Recorded Advance Directives Directive N: Payers Insurance Date Sequence Insurance Name Policy Number Policy Alvarez Covered Member ID Alvarez Member ID Guarantor Name 06/21/2022 1 [place] [facility] [facility] [employer] Jade Mario [id number] Jade Mario 06/21/2022 1 [place] [facility] OF PUBLIC AID Jade Mario [id number] Jade Mario 06/21/2022 1 [facility] (MEDICAID HMO) [facility] Jade Mario [id number] Jade Mario 09/23/2019 SLIDING FEE SCHEDULE - DISCOUNT Jade Mario 01/27/2024 SLIDING FEE SCHEDULE - DISCOUNT Jade Mario 06/05/2019 SLIDING FEE SCHEDULE - DISCOUNT Jade Mario 07/07/2018 1 *SELF PAY* ndra Mario 07/07/2018 SLIDING FEE SCHEDULE - DISCOUNT Jade Mario 11/25/2017 1 *SELF PAY* ndra Mario 03/29/2017 SLIDING FEE SCHEDULE - DISCOUNT Jade Mario 11/22/2022 [facility] Jade Mario Notes Date Note Type Note Provider Name and Address Organization Details Recorded Time 04/06/2019 text/html OCP CheckReporte d bypatient.Associate d Symptoms:regular menses; no BTB menses; no side effects 28yo HF here for nexplanon check, states a few times daily while carrying her child she gets a pinching sensation that travels down her left arm Kevin kim [facility] 04/06/2019 15:46:29 06/21/2020 text/html Patient presents for I need to have a heart test son has muscular dystrophy, club foot, open heart arteries, told her that she likely has it. has chest pain, left hand falls asleep when she sleeps, left foot hurts if walks alot and feels achy, palpitation daily lasting 5-30 minutes depending on how much she walks. sob happens with 5 feet of distance. specially if carries her son. no swelling in legs. dizziness with stress or anxiety and causes her vision to go. headaches occasionally 1-2 x week. lasts less than 2 minutes. pain is pulsing on top of head. thinks she has insomnia. sleeps in short bursts and does not sleep until 4am. falls asleep at midnight until 12:05 and stays up until 4am. daily. GABRIELLE MORE Attn: [address] [place], [address], [facility] 06/22/2020 14:02:04 06/20/2022 text/html Annual GYNReport ed bypatient.History:n o gynecologic complaints Menstrual cycle:Irregular cycle intervals Urinary symptoms:No hematuria; No incontinence Vulva:No genital lesion Vagina:Normal vaginal discharge Breast:No breast pain; No breast lump; No nipple discharge Current Contraception:Impla non (due for replacement) Sexual complaints:No sexual complaints; No pain during intercourse; Normal libido Menopausal Symptoms:No menopausal symptoms; Normal vaginal lubrication Psychological symptoms:No depression; No anxiety; No PMDD Preventive measures:Encourage self breast examination; Encourage regular exercise; Encourage no tobacco use; Encourage regular mammograms starting age 40 Jade is a female who presents to the office for IBP well-woman exam. Patient uses Nexplanon as control but it is . LMP 05/21/22. Denies any vaginal changes, discharge, irritation, polyuria, or abdominal pain GABRIELLE GALVIN Attn: Accounting[address] [place], [address], [facility] 06/21/2022 13:22:36 01/27/2024 text/html Patient presents for overall check up last seen 2020 states she feels more tired than before. States all tree of her kids have special needs and she feels this can also tire her out. she does not exercise. drinks daily soda. GABRIELLE MORE Attn: [address] [place], [address], [facility] 01/27/2024 11:52:43 OBGyn Episode Ob Episode Information Episode Created Date Number of Fetuses Patient Bloodtype Patient rh Status Prepregnancy Weight lbs Domestic Partner Domestic Partner Phone Father Name Office Machine Technician Status 05/06/19 19 1 CLOSED Fetus Data First Name Last Name Admitted to NICU Weight (g) Sex Living Outcome Pediatric Complications Fetus ID Race Codes Race Delivery Type 2721.55 2 Prematur e [id number] Only Kirk Calculation Initial Kirk Date Initial Exam Date Initial Exam Provider Initial Ultrasound Date Last Menstrual Period Date Ultra Sound Weeks Gestation 0 Eighteen To Twenty Week Kirk Update Ultra Sound Date Fundal Height At Umbil Quickening Date Ultra Sound Latest Weeks Gestation Final Kirk Confirmed By Final Kirk Confirmed Date Final Kirk Date Ultra Sound Latest Days Gestation 0 0 Menstrual History Last Menstrual Date Menses Monthly On Bcp Conception Prior Menses Frequency Hcg Plus Date Menarche Onset Age Delivery Information Delivery Date Delivery Type Labor Anesthesia Weeks Gestation Incision Type Labor Labor Length Hrs Delivered By Post Complications Tubal Sterilization Discharge Date Comments 9 Regional-Sp inal true Discharge Information Feeding Method Contraceptive Method Maternal HG B and HCT Levels Ob Episode Information Episode Created Date Number of Fetuses Patient Bloodtype Patient rh Status Prepregnancy Weight lbs Domestic Partner Domestic Partner Phone Father Name Office Machine Technician Status 08/29/19 17 1 CLOSED Fetus Data First Name Last Name Admitted to NICU Weight (g) Sex Living Outcome Pediatric Complications Fetus ID Race Codes Race Delivery Type 5499.80 3 M Full Term [id number] Vaginal Kirk Calculation Initial Kirk Date Initial Exam Date Initial Exam Provider Initial Ultrasound Date Last Menstrual Period Date Ultra Sound Weeks Gestation 0 Eighteen To Twenty Week Kirk Update Ultra Sound Date Fundal Height At Umbil Quickening Date Ultra Sound Latest Weeks Gestation Final Kirk Confirmed By Final Kirk Confirmed Date Final Kirk Date Ultra Sound Latest Days Gestation 0 0 Menstrual History Last Menstrual Date Menses Monthly On Bcp Conception Prior Menses Frequency Hcg Plus Date Menarche Onset Age Delivery Information Delivery Date Delivery Type Labor Anesthesia Weeks Gestation Incision Type Labor Labor Length Hrs Delivered By Post Complications Tubal Sterilization Discharge Date Comments 2 None 40 2 Discharge Information Feeding Method Contraceptive Method Maternal HG B and HCT Levels Ob Episode Information Episode Created Date Number of Fetuses Patient Bloodtype Patient rh Status Prepregnancy Weight lbs Domestic Partner Domestic Partner Phone Father Name Office Machine Technician Status 08/29/19 17 1 CLOSED Fetus Data First Name Last Name Admitted to NICU Weight (g) Sex Living Outcome Pediatric Complications Fetus ID Race Codes Race Delivery Type , Spontane ous [id number] Kirk Calculation Initial Kirk Date Initial Exam Date Initial Exam Provider Initial Ultrasound Date Last Menstrual Period Date Ultra Sound Weeks Gestation 0 Eighteen To Twenty Week Kirk Update Ultra Sound Date Fundal Height At Umbil Quickening Date Ultra Sound Latest Weeks Gestation Final Kirk Confirmed By Final Kirk Confirmed Date Final Kirk Date Ultra Sound Latest Days Gestation 0 0 Menstrual History Last Menstrual Date Menses Monthly On Bcp Conception Prior Menses Frequency Hcg Plus Date Menarche Onset Age Delivery Information Delivery Date Delivery Type Labor Anesthesia Weeks Gestation Incision Type Labor Labor Length Hrs Delivered By Post Complications Tubal Sterilization Discharge Date Comments 7 8 pt state s unsure of date of SAB, CB-RMA Discharge Information Feeding Method Contraceptive Method Maternal HG B and HCT Levels Ob Episode Information Episode Created Date Number of Fetuses Patient Bloodtype Patient rh Status Prepregnancy Weight lbs Domestic Partner Domestic Partner Phone Father Name Office Machine Technician Status 08/29/19 17 1 CLOSED Fetus Data First Name Last Name Admitted to NICU Weight (g) Sex Living Outcome Pediatric Complications Fetus ID Race Codes Race Delivery Type 3316.66 [id number] M Full Term [id number] Vaginal Kirk Calculation Initial Krik Date Initial Exam Date Initial Exam Provider Initial Ultrasound Date Last Menstrual Period Date Ultra Sound Weeks Gestation 0 Eighteen To Twenty Week Kirk Update Ultra Sound Date Fundal Height At Umbil Quickening Date Ultra Sound Latest Weeks Gestation Final Kirk Confirmed By Final Kirk Confirmed Date Final Kirk Date Ultra Sound Latest Days Gestation 0 0 Menstrual History Last Menstrual Date Menses Monthly On Bcp Conception Prior Menses Frequency Hcg Plus Date Menarche Onset Age Delivery Information Delivery Date Delivery Type Labor Anesthesia Weeks Gestation Incision Type Labor Labor Length Hrs Delivered By Post Complications Tubal Sterilization Discharge Date Comments 9 Regional- idural 40 Discharge Information Feeding Method Contraceptive Method Maternal HG B and HCT Levels Ob Episode Information Episode Created Date Number of Fetuses Patient Bloodtype Patient rh Status Prepregnancy Weight lbs Domestic Partner Domestic Partner Phone Father Name Office Machine Technician Status 10/29/19 18 1 A Positive 154 CLOSED Fetus Data First Name Last Name Admitted to NICU Weight (g) Sex Living Outcome Pediatric Complications Fetus ID Race Codes Race Delivery Type Balta Tenor io true 2721.55 2 M Prematur e infant still in hospital for respiratory support. Mother unsure of exact weight [phone] White Problems Problem Notes Baby boy, name Joanne Pantoja . Bottle and breast feed. NCB NO EPIDURAL! Plan for Mirena for contraceptive. Problem Name Start Date End Date Resolution Snomed Code Not e Anemia 03/01/2018 [id number] Urogenital infection by Trichomonas vaginalis 11/05/2017 [id number] Abnormal cervical Papanicola ou smear 03/19/2017 [id number] Genital herpes simplex 10/28/2017 189330 06 Bacterial vaginosis 03/19/2017 [id number] Homozygous methylenetetrahydrofolate reductase mutation 11/05/2017 [id number] Chlamydial infection 03/19/2017 [id number] 0 Group B Streptococcus carrier 03/19/2017 [id number] Kirk Calculation Initial Kirk Date Initial Exam Date Initial Exam Provider Initial Ultrasound Date Last Menstrual Period Date Ultra Sound Weeks Gestation 05/16/2018 10/28/2017 [email or web address] 11/20/2017 08/18/2017 14 Eighteen To Twenty Week Kirk Update Ultra Sound Date Fundal Height At Umbil Quickening Date Ultra Sound Latest Weeks Gestation Final Kirk Confirmed By Final Kirk Confirmed Date Final Kirk Date Ultra Sound Latest Days Gestation 11/21/19 18 14 11/25/2017 05/17/19 19 5 Pre- Flowsheet Flowsheet Date 10/28/2017 Kellogg Score Blood Edema Fundus Height Fundus Units Glucose Ketones Leukocytes Nitrite Labor Signs Protein Cervic Dilation Cervic Effacement Cervic Station neg none 10 wks none negative none neg Type Weight in lbs Pre/Post Dialysis Refused Weight 154.238255516003 BP Diastolic BP Location Tested BP Systolic BP Type 66 92 sitting Fetus Heart Rate Present Fetus Movement Comments Ordered US, H/o miscarriage so AFP, MTFHT, folic acid, started on folic acid, progesterone, B12 injection and ASA Flowsheet Date 11/25/2017 Kellogg Score Blood Edema Fundus Height Fundus Units Glucose Ketones Leukocytes Nitrite Labor Signs Protein Cervic Dilation Cervic Effacement Cervic Station neg none 15 wks none negative none trace Type Weight in lbs Pre/Post Dialysis Refused Weight 157.088565155185 BP Diastolic BP Location Tested BP Systolic BP Type 58 90 sitting Fetus Heart Rate Present A 137 Present Fetus Movement A Yes Comments CT, MTHFR-B12 given Flowsheet Date 12/26/2017 Kellogg Score Blood Edema Fundus Height Fundus Units Glucose Ketones Leukocytes Nitrite Labor Signs Protein Cervic Dilation Cervic Effacement Cervic Station neg none 19 wks none negative none neg Type Weight in lbs Pre/Post Dialysis Refused Weight 269.679952614373 BP Diastolic BP Location Tested BP Systolic BP Type 62 100 sitting Fetus Heart Rate Present A 145 Present Fetus Movement A Yes Comments B12 injection given today. F teena vaccine received today. NT, CT, GC taken off urine. Flowsheet Date 02/04/2018 Kellogg Score Blood Edema Fundus Height Fundus Units Glucose Ketones Leukocytes Nitrite Labor Signs Protein Cervic Dilation Cervic Effacement Cervic Station neg none 25 wks none negative none neg Type Weight in lbs Pre/Post Dialysis Refused Weight 173.865502989052 BP Diastolic BP Location Tested BP Systolic BP Type 64 104 sitting Fetus Heart Rate Present A 150 Present Fetus Movement A Yes Comments B12 injection 02/04. Gave wtc wlb paperwork. US ordered. Flowsheet Date 03/10/2018 Kellogg Score Blood Edema Fundus Height Fundus Units Glucose Ketones Leukocytes Nitrite Labor Signs Protein Cervic Dilation Cervic Effacement Cervic Station neg none 30 wks none negative trace Type Weight in lbs Pre/Post Dialysis Refused With clothes 180.704799518454 BP Diastolic BP Location Tested BP Systolic BP Type 64 108 sitting Fetus Heart Rate Present A 152 Present Fetus Movement A Yes Comments B12 given 03/10/18 Flowsheet Date 05/05/2018 Kellogg Score Blood Edema Fundus Height Fundus Units Glucose Ketones Leukocytes Nitrite Labor Signs Protein Cervic Dilation Cervic Effacement Cervic Station Type Weight in lbs Pre/Post Dialysis Refused With clothes 153.760968988453 BP Diastolic BP Location Tested BP Systolic BP Type 60 106 sitting Fetus Heart Rate Present Fetus Movement Comments Menstrual History Last Menstrual Date Menses Monthly On Bcp Conception Prior Menses Frequency Hcg Plus Date Menarche Onset Age 0608/18/2017 false 14 Genetic Screening And Infection History Question Response Note Patient's Age Will Be 35 Yea rs Or Older At Estimated Date of Delivery false Thalassemia (Filipino, Armenian, Mediterranean, Or Background): MCV < 80 false Neural Tube Defect (Meningom yelocele, Spina Bifida, Or Anencephaly) false Congenital Heart Defect false Down Syndrome false Bryan-Sachs (eg, Spiritism, Cajun, Hungarian-Collin) f alse Kerline Disease false Sickle Cell Disease Or Trait () false Hemophilia Or Other Blood Disorders false Muscular Dystrophy false Cystic Fibrosis false Maxine's Chorea false Mental Retardation/Autism false If Yes, Was Person Tested For Fragile X? false Other Inherited Genetic Or Chromosomal Disorder false Maternal Metabolic Disorder (eg, Type 1 Diabetes, PKU) false Patient Or Baby's Father Had A Child With Defects Not Listed Above false Recurrent Loss, Or A Stillbirth false Medications (including Suppl ements, Vitamins, Herbs, OTC Drugs), Illicit/Recreational Drugs, Alcohol false If Yes, Agent(s) And Strength/Dosage false Any Other Genetic History false Live With Someone With TB Or Exposed To TB false Patient Or Partner Has History Of Genital Herpes true HSV2, last positive 03/19/17 Rash Or Viral Illness Since Last Menstrual Period false History Of STD, Gonorrhea, C hlamydia, HPV, Syphilis true +BV, Chlamydia Other Infection History true +GBS History of HIV false History of Hepatitis false Prior GBS-infected child false Delivery Information Delivery Date Delivery Type Labor Anesthesia Weeks Gestation Incision Type Labor Labor Length Hrs Delivered By Post Complications Tubal Sterilization Discharge Date Comments 9 Induce d [facility] [address] Low Trans[address] e false Dr. Johnson None false 04/16/2018 [facility] Discharge Information Feeding Method Contraceptive Method Maternal HG B and HCT Levels
--- OUTSIDE RECORDS SUMMARY | 2024-09-20 13:57 | XMS_ITS | Clinical Summary ---
Author Organization [facility] Address [address] [address] Care Team Providers Care Truss Driver Helper Name Role Phone Unavailable Primary Care Provider Unavailabl e Source Comments [facility],non-owned Affiliates and Associated Physician Practices is amultiple site organization consisting of ambulatory clinics and hospital sitesin [place], [place], [place] and [place]. This disclosure is being madepursuant to the Care Everywhere program and may not contain all information available regarding this patient. Last updated 17.[facility] Tapad Allergies No known active allergies Social History Tobacco Use Types Packs/Day Years Used Date Smoking Tobacco: Never Smokeless Tobacco: Never Tobacco Cessation:Counseling Given: Not Answered Alcohol Use Standard Drinks/Week Comments Not Currently 0 (1 standard drink = 0.6 oz pur e alcohol) Comments No Sex and Gender Information Value Date Recorded Sex Assigned at Not on file Legal Sex Female 11:42 AM CDT Gender Identity Not on file Sexual Orientation Not on file Last Filed Vital Signs Vital Sign Reading Time Taken Comments Blood Pressure 104/68 06/04/2022 10:21 PM CDT Pulse 78 06/04/2022 10:21 PM CDT Temperature 36.7 C (98.1 F) 06/04/2022 10:21 PM CDT Respiratory Rate 20 06/04/2022 10:21 PM CDT Oxygen Saturation 98% 06/04/2022 10:21 PM CDT Inhaled Oxygen Concentration - - Weight 68 kg (150 lb) 06/04/2022 12:13 PM CDT Height 157.5 cm (5' 2) 06/04/2022 12:13 PM CDT Body Mass Index 27.44 06/04/2022 12:13 PM CDT Plan of Treatment Health Maintenance Due Date Last Done Comments HIV SCREENING 2004 HEPATITIS C SCREENING 04/24/2007 DTAP/TDAP/TD VACCINES (1 - Tdap) 2008 HEPATITIS B VACCINE (1 of 3 - 19+ 3-dose series) 2008 PAP SMEAR 2010 HPV VACCINE (1 - 3-dose SCDM series) 2016 COVID-19 VACCINE (1 - 2023-2 5 season) 2023 DEPRESSION SCREENING 03/04/2024 INFLUENZA VACCINE (#1) 2024 ZOSTER VACCINE (1 of 2) 2039 HIB VACCINE Aged Out No longer eligi ble based on patient's age to complete this topic MENINGOCOCCAL (Group B) VACC INE SHARED DECISION-MAKING Aged Out No longer eligibl e based on patient's age to complete this topic MENINGOCOCCAL GROUPS A/C/Y/W VACCINE Aged Out No longer eligible b ased on patient's age to complete this topic PNEUMOCOCCAL VACCINE Aged Out No long er eligible based on patient's age to complete this topic
--- OUTSIDE RECORDS SUMMARY | 2024-09-20 13:57 | XMS_ITS | Clinical Summary ---
Author Organization [facility] Address [address] [place] [address] Care Team Providers Care Real Estate Teacher Name Role Phone Unknown, Notinfile Primary Care Provider Unavail able Unknown, Notinfile Unavailable Unavailable Allergies No known active allergies Medications prenat vit [id number], 6 35-5-1.2-400 mg capsule Take by mouth [...] 0 04/23/2018 wound infection 04/18/2018 Overview (04/18/2018): [place] 04/18 - C/f evolving wound infection - [...] #MWB -Primary OB - Dr. Gan in [place] -Rh positive/Ab negative -Need to obtain records -GBS unknown, collected and sent -MOF: breast -MOC: desires postplacental hormonal IUD Encounters Date Type Department Care Team Description 09/16/2024 10:47 AM CDT - 09/16/2024 11:06 AM CDT Emergency [facility] Emergency Department [address] [place] [address] Inflamed skin tag (Primary Dx) Discharge Disposition: Discharge to home or self care from Last 3 Months Immunizations Immunization Administration Dates Next Due MMR 04/15/2018(Deferred: No longer needed - Patient is Rubella Immune) Family History Medical History Relation Name Comments Congenital myotonic dystrophy type 1 Child Relation Name Status Comments Child Alive Social History Tobacco Use Types Packs/Day Years [...] on file Legal Sex Female 8:44 PM MACHINIST APPRENTICE WOOD Gender Identity Not on file Sexual Orientation Not on file Obstetrics History Para Term AB IAB SAB Ectopic Multiple Livin g Live Births 4 3 2 1 1 0 1 0 0 3 3 Date Outcome GA Total Labor Labor/2nd/3rd Weight Sex Type Anes PTL Jessica A1 A5 Name Clin SAB Term M Livin g Term M Livin g 2018 35w 1d 2.88 kg (6 lb 5.6 oz) M CS-LT ranv Genera l Y Livin g 5 5 ORALIVIA REBOLLAR Shayna Norman, MD Complications:Other (Comment ) Delivery Location:[facility] ([facility]) Last Filed Vital Signs Vital Sign Reading Time Taken Comments Blood Pressure 110/66 09/16/2024 10:18 AM CDT Pulse 84 09/16/2024 10:18 AM CDT Temperature 36.4 C (97.5 F) 09/16/2024 10:18 AM CDT Respiratory Rate 16 09/16/2024 10:21 AM CDT Oxygen Saturation 94% 09/16/2024 10:18 AM CDT Inhaled Oxygen Concentration - - Weight 72.1 kg (159 lb) 03/29/2024 9:04 AM MACHINIST APPRENTICE WOOD Height 165.1 cm (5' 5) 03/29/2024 9:04 AM MACHINIST APPRENTICE WOOD Body Mass Index 26.46 03/29/2024 9:04 AM MACHINIST APPRENTICE WOOD Plan of Treatment Health Maintenance Due Date Last Done Comments Cervical Cancer Screening 1989 Varicella Vaccines (1 of 2 - 13+ 2-dose series) 2002 Hepatitis B Screening 2007 Regular Well Visit/Exam 18-64 2007 Depression Screening 05/20/2019 05/19/2018 Covid-19 Vaccine (3 2023-2 5 season) 2023 08/31/2020, 08/03/2020 Influenza Vaccine (#1) 2024 3, 12/27/2017 DTaP/Tdap/Td Vaccine (2 - Td or Tdap) 01/26/2034 01/27/2024 Hepatitis C Screening Completed 04/10/2018 HPV Vaccines Aged Out No longer eligi ble based on patient's age to complete this topic Pneumococcal vaccine <65 Aged Out No longer eligible based on patient's age to complete this topic Procedures Procedure Name Priority Date/Time Associated Diagnosis Comments HEPATITIS PANEL, ACUTE Routine 04/10/2018 11:33 AM MACHINIST APPRENTICE WOOD from Last 3 Months or Most Recently Relevant to Health Maintenance Results * Hepatitis panel, acute (04/10/2018 11:33 AM MACHINIST APPRENTICE WOOD) Hep A IgM Nonreactive Nonreactive [facility] Comment: Interpretive Data If test is reported as GRAYZONE, new sample should be drawn in two weeks for testing. Current interpretive data was last revised on 2016. Hep B core IgM Nonreactive Nonreactive [facility] Comment: Interpretive Data If test is reported as GRAYZONE, new sample should be drawn for testing. Current interpretive data was last revised on 2016. Hep C Ab Nonreactive Nonreactive [facility] Comment: Interpretive Data Positive results should be confirmed by a molecular method. If positive, a second separately collected sample should be submitted for Hepatitis C Virus (HCV) RNA Detection and Quantitation by Real-Time Reverse Aircraft Structure Mechanic-PCR (RT-PCR). Current interpretive data was last revised on 2016. HepBsAg Nonreactive Nonreactive [facility] Blood specimen (specimen) 04/10/2018 11:33 AM MACHINIST APPRENTICE WOOD 04/10/2018 11:49 AM MACHINIST APPRENTICE WOOD Narrative [facility] - 04/10/2018 2:46 PM MACHINIST APPRENTICE WOOD us Iris Owens MD LAB MICROBIOLOGY - GENER AL ORDERABLES Edited Result - Final [facility] [place] [address] from Last 3 Months or Most Recently Relevant to Health Maintenance Advance Directives For more information, please contact: [phone] * Full Code (Latest Code Status on File) Date Activated Date Inactivated Comments 04/11/2018 6:59 PM 04/15/2018 7:58 PM * Full Code Date Activated Date Inactivated Comments 04/09/2018 9:39 PM 04/11/2018 6:55 PM Care Teams Real Estate Teacher Relationship Specialty Start Date End Date Unknown, Notinfile PCP - General 03/29/24 Unknown, Notinfile 03/29/24
[2024-09-20 14:32] VITALS: BP 123/62; PULSE 96; RESP 16; TEMP 36.7; O2SAT 96
--- NOTE | 2024-09-20 15:10 | ED_ITS ---
HPI - Skin/Abscess/Foreign Bdy General Chief complaint: Skin/Abscess/Foreign Body Stated complaint: SORE ON ABDOMEN Time Seen by Provider: 09/20/24 15:09 Source: patient and family (Brother) Mode of arrival: ambulatory Limitations: no limitations History of Present Illness HPI narrative: Patient presents with concern for a sore on her abdomen. She has noticed a a skin lesion on the right upper quadrant of her abdomen that has been present for approximately 1 month. She notes that has occasionally been draining pus and bleeding. It is tender. She does not have a primary care physician. She denies any fevers or chills. This had not been present previously. She denies any allergies to antibiotics. No history of MRSA. Related Data Home Medications ?Medication ?Instructions ?Recorded ?Confirmed ?Last Taken ?Type etonogestrel 68 mg subdermal 1 implant subdermal ONCE 09/14/24 Unknown History implant (Nexplanon) Allergies Allergy/AdvReac Type Severity Reaction Status Date / Time No Known Allergies Allergy none Uncoded 09/20/24 13:56 [facility] Social History Social History (System 11/22/21 @ 11:06 by Liliya Bosch) Smoking status: Never smoker Alcohol intake: never Exam 2 Narrative: GENERAL: Well-appearing, well-nourished, and in no acute distress. HEAD: Normocephalic, atraumatic. EYES: Non injected, non icteric ENT: Nares clear, no rhinorrhea or epistaxis. Gross auditory acuity intact. NECK: Supple. No meningismus. CHEST: Speaking in full sentences. No respiratory distress. HEART: Regular rate and rhythm. . ABDOMEN: Obese Soft, nondistended. No rigidity or guarding. Not peritoneal EXTREMITIES: Normal range of motion. No lower extremity edema. SKIN: Warm, dry. Pedunculated red lesion approximately 1.5cm on RUQ of abdomen TTP surrounded by erythematous area. NEURO: No focal deficits. Alert and oriented. Answering questions. Following commands. Normal speech without aphasia or dysarthria. PSYCH: Normal mood and affect. Course Vital Signs Vital signs: Vital Signs Temperature 98.1 F 09/20/24 14:32 Pulse Rate 96 09/20/24 14:32 Respiratory Rate 16 09/20/24 14:32 Blood Pressure 123/62 09/20/24 14:32 Pulse Oximetry 96 09/20/24 14:32 Oxygen Delivery Room Air 09/20/24 14:32 Temperature 98.1 F 09/20/24 14:32 Pulse Rate 88 09/20/24 17:16 Respiratory Rate 18 09/20/24 17:16 Blood Pressure 126/74 09/20/24 17:16 Pulse Oximetry 98 09/20/24 17:16 Oxygen Delivery Room Air 09/20/24 14:32 MDM - Skin/Abscess/Foreign Bdy MDM Narrative Medical decision making narrative: Patient presents with concern for a skin lesion that has been present for approximately 1 month. In the emergency department they are afebrile with vital signs within normal limits. The pedunculated mass is concerning but the surrounding area appears to be consistent with cellulitis. Otherwise No appreciable abscess. Basic labs are obtained and reviewed and generally unremarkable. She is nontoxic appearing. A wound culture has been obtained. Patient given 1st dose of antibiotic in the emergency department the rest of the course as prescribed. She is also prescribed [id number] analgesics medication. Advised to follow-up. Given the name of a local primary care physician for this. Differential Diagnosis Differential diagnosis: Likely abscess of skin or subcutaneous tissue, cellulitis and other (garcía angioma, skin tag, malignancy including Dianna cell, mole, ) Lab Data Attestation: I reviewed the patient's lab results. 09/20/24 16:14 09/20/24 16:14 Labs: Lab Results 09/20/24 Range/Units 16:14 WBC 9.5 (4.5-10.0) K/mm3 RBC 4.92 (4.2-5.4) M/mm3 Hgb 13.8 (12.0-15.0) g/dL Hct 43.4 (37.0-47.0) % MCV 88.2 (80-100) fl MCH 28.0 (26-34) pg MCHC 31.8 L (32-36) g/dl RDW 14.0 (11.5-14.5) % Plt Count 183 (150-375) k/mm3 MPV 12.4 H (7.4-10.4) fl Immature Gran % (Auto) 0.4 (0-0.5) % Neut % (Auto) 64.4 (45.5-73.1) % Lymph % (Auto) 24.7 (18.3-44.2) % Briscoe % (Auto) 8.9 H (2.6-8.5) % Eos % (Auto) 1.3 (0-4.4) % Baso % (Auto) 0.3 (0.2-1.2) % Lymph # (Auto) 2.34 (0.9-3.2) K/mm3 Briscoe # (Auto) 0.8 H (0.1-0.6) K/mm3 Eos # (Auto) 0.1 (0-0.3) K/mm3 Baso # (Auto) 0.0 (0.0-0.1) K/mm3 Abs Immat Gran (auto) 0.04 H (0.00-0.031) K/mm3 Absolute Neuts (auto) 6.1 (1.3-6.7) K/mm3 Absolute Nucleated RBC 0.000 (0.0-0.012) K/mm3 Nucleated RBC % 0.0 (0.0-0.2) % Sodium 143 (137-145) mmol/L Potassium 3.9 (3.4-5.0) mmol/L Chloride 106 (98-107) mmol/L Carbon Dioxide 29 (22-30) mmol/L Anion Gap 8 (4-12) mmol/L BUN 11 (7-17) mg/dL Creatinine 0.86 (0.7-1.0) mg/dL Estim Creat Clear Calc 87 ml/min Estimated GFR > 60 (59 - ) Glucose 113 H (65-110) mg/dL Calcium 9.9 (8.4-10.2) mg/dL Discharge Plan Discharge Clinical Impression: Cellulitis, Skin lesion Patient Disposition: Home Condition: Stable Instructions: Antibiotic Form, Cellulitis (ED) Additional Instructions: Take the course of antibiotics and follow up with a primary care physician. Because you do not have 1, the name of the doctors listed below. Acetaminophen/Tylenol (maximum 4000 mg per day) is safe to take with NSAIDs (ibuprofen/Motrin) for pain relief. Return to the emergency department any new or worsening symptoms Patient Language: Surinamese Prescriptions: New cephalexin 500 mg tablet 500 mg PO Q8H 5 Days Qty: 14 0RF Rx Instructions: received first dose in ED 09/20 ibuprofen 600 mg tablet 600 mg PO TID PRN (Reason: pain) Qty: 30 0RF acetaminophen 500 mg capsule 1,000 mg PO Q6H PRN (Reason: pain) Qty: 30 0RF No Action Nexplanon 68 mg implant 1 implant subdermal ONCE Rx Instructions: as a single dose Follow-up/Referrals: PHYSICIAN,ARC TRIMMER [Primary Care Provider] - David Guzman MD [Physician] - Stand Alone Forms: Work/School Release IP Time of Disposition: 16:48
--- OUTSIDE RECORDS SUMMARY | 2024-09-20 15:51 | XMS_ITS | Referral Summary ---
Author Organization [facility] Address [address] [place] [address] Care Team Providers Care Manager Portable Name Role Phone Unknown, Notinfile Primary Care Provider Unavail able Unknown, Notinfile Unavailable Unavailable Encounters Date Type Department Care Team Description 09/16/2024 10:47 AM CDT - 09/16/2024 11:06 AM CDT Emergency [facility] Emergency Department [address] [place] [id number] Inflamed skin tag (Primary Dx) Discharge Disposition: Discharge to home or self care from Last 3 Months Allergies No known active allergies Medications prenat vit [id number], 6 35-5-1.2-400 mg capsule Take by mouth [...] 0 04/23/2018 wound infection 04/18/2018 Overview (04/18/2018): [facility] 04/18 - C/f evolving wound infection [...] #MWB -Primary OB - Dr. Gan in [place] -Rh positive/Ab negative -Need to obtain records [...] on file Legal Sex Female 8:44 PM DRIVER LICENSE EXAMINER Gender Identity Not on file Sexual Orientation [...] 72.1 kg (159 lb) 03/29/2024 9:04 AM DRIVER LICENSE EXAMINER Height 165.1 cm (5' 5) 03/29/2024 9:04 AM DRIVER LICENSE EXAMINER Body Mass Index 26.46 03/29/2024 9:04 AM DRIVER LICENSE EXAMINER Plan of Treatment Not on file Procedures Procedure Name Priority Date/Time Associated Diagnosis Comments HEPATITIS PANEL, ACUTE Routine 04/10/2018 11:33 AM DRIVER LICENSE EXAMINER from Last 3 Months or Most Recently Relevant to Health Maintenance Results * Hepatitis panel, acute (04/10/2018 11:33 AM DRIVER LICENSE EXAMINER) Hep A IgM Nonreactive Nonreactive [facility] Comment: Interpretive Data If test is reported as GRAYZONE, new sample should be drawn in two weeks for testing. Current interpretive data was last revised on 2016. Hep B core IgM Nonreactive Nonreactive [facility] Comment: Interpretive Data If test is reported as GRAYZONE, new sample should be drawn for testing. Current interpretive data was last revised on 2016. Hep C Ab Nonreactive Nonreactive [facility] Comment: Interpretive Data Positive results should be confirmed by a molecular method. If positive, a second separately collected sample should be submitted for Hepatitis C Virus (HCV) RNA Detection and Quantitation by Real-Time Reverse Entry Level Recruiter-PCR (RT-PCR). Current interpretive data was last revised on 2016. HepBsAg Nonreactive Nonreactive [facility] Blood specimen (specimen) 04/10/2018 11:33 AM DRIVER LICENSE EXAMINER 04/10/2018 11:49 AM DRIVER LICENSE EXAMINER Narrative [facility] - 04/10/2018 2:46 PM DRIVER LICENSE EXAMINER us Iris Owens MD LAB MICROBIOLOGY - GENER AL ORDERABLES Edited Result - Final [facility] [place] [address] from Last 3 Months or Most Recently Relevant to Health Maintenance Advance Directives For more information, please contact: [phone] * Full Code (Latest Code Status on File) Date Activated Date Inactivated Comments 04/11/2018 6:59 PM 04/15/2018 7:58 PM * Full Code Date Activated Date Inactivated Comments 04/09/2018 9:39 PM 04/11/2018 6:55 PM Care Teams Manager Portable Relationship Specialty Start Date End Date Unknown, Notinfile PCP - General 03/29/24 Unknown, Notinfile 03/29/24
--- OUTSIDE RECORDS SUMMARY | 2024-09-20 15:51 | XMS_ITS | Clinical Summary ---
Author Organization [facility] Address [address] [place] [address] Care Team Providers Care Rn Chemical Dependency Name Role Phone Unknown, Notinfile Primary Care Provider Unavail able Unknown, Notinfile Unavailable Unavailable Allergies No known active allergies Medications prenat vit [id number]-om3, 6 35-5-1.2-400 mg capsule Take by mouth [...] #MWB -Primary OB - Dr. Gan in [place] -Rh positive/Ab negative -Need to obtain records -GBS unknown, collected and sent -MOF: breast -MOC: desires postplacental hormonal IUD Encounters Date Type Department Care Team Description 09/16/2024 10:47 AM CDT - 09/16/2024 11:06 AM CDT Emergency [facility] Emergency Department [address] [place] [address] Inflamed skin tag (Primary Dx) Discharge Disposition: [...] on file Legal Sex Female 8:44 PM PRESSURIZER Gender Identity Not on file Sexual Orientation Not on file Obstetrics History Para Term AB IAB SAB Ectopic Multiple Livin g Live Births 4 3 2 1 1 0 1 0 0 3 3 Date Outcome GA Total Labor Labor/2nd/3rd Weight Sex Type Anes PTL Jsesica A1 A5 Name Clin SAB Term M Livin g Term M Livin g 2018 35w 1d 2.88 kg (6 lb 5.6 oz) M CS-LT ranv Genera l Y Livin g 5 5 ORALIVIA REBOLLAR Shayna Norman, MD Complications:Other (Comment ) Delivery Location:[facility] ([facility]) Last Filed Vital Signs Vital Sign Reading Time Taken Comments Blood Pressure 110/66 09/16/2024 10:18 AM CDT Pulse 84 09/16/2024 10:18 AM CDT Temperature 36.4 C (97.5 F) 09/16/2024 10:18 AM CDT Respiratory Rate 16 09/16/2024 10:21 AM CDT Oxygen Saturation 94% 09/16/2024 10:18 AM CDT Inhaled Oxygen Concentration - - Weight 72.1 kg (159 lb) 03/29/2024 9:04 AM PRESSURIZER Height 165.1 cm (5' 5) 03/29/2024 9:04 AM PRESSURIZER Body Mass Index 26.46 03/29/2024 9:04 AM PRESSURIZER Plan of Treatment Health Maintenance Due Date [...] HEPATITIS PANEL, ACUTE Routine 04/10/2018 11:33 AM PRESSURIZER from Last 3 Months or Most Recently Relevant to Health Maintenance Results * Hepatitis panel, acute (04/10/2018 11:33 AM PRESSURIZER) Hep A IgM Nonreactive Nonreactive [facility] Comment: Interpretive Data If test is reported as GRAYZONE, new sample should be drawn in two weeks for testing. Current interpretive data was last revised on 2016. Hep B core IgM Nonreactive Nonreactive [facility] Comment: Interpretive Data If test is reported as GRAYZONE, new sample should be drawn for testing. Current interpretive data was last revised on 2016. Hep C Ab Nonreactive Nonreactive [facility] Comment: Interpretive Data Positive results should be confirmed by a molecular method. If positive, a second separately collected sample should be submitted for Hepatitis C Virus (HCV) RNA Detection and Quantitation by Real-Time Reverse Quick Sketch Artist-PCR (RT-PCR). Current interpretive data was last revised on 2016. HepBsAg Nonreactive Nonreactive [facility] Blood specimen (specimen) 04/10/2018 11:33 AM PRESSURIZER 04/10/2018 11:49 AM PRESSURIZER Narrative [facility] - 04/10/2018 2:46 PM PRESSURIZER us Iris Owens MD LAB MICROBIOLOGY - GENER AL ORDERABLES Edited Result - Final [facility] [place] [address] from Last 3 Months or Most Recently Relevant to Health Maintenance Advance Directives For more information, please contact: [phone] * Full Code (Latest Code Status on File) Date Activated Date Inactivated Comments 04/11/2018 6:59 PM 04/15/2018 7:58 PM * Full Code Date Activated Date Inactivated Comments 04/09/2018 9:39 PM 04/11/2018 6:55 PM Care Teams Rn Chemical Dependency Relationship Specialty Start Date End Date Unknown, Notinfile PCP - General 03/29/24 Unknown, Notinfile 03/29/24
--- OUTSIDE RECORDS SUMMARY | 2024-09-20 15:51 | XMS_ITS | Clinical Summary ---
Author Organization [facility] Address [address] [place] [address] Care Team Providers Care Play Back Operator Name Role Phone Unavailable Primary Care Provider Unavailabl e Source Comments [facility],non-owned Affiliates and Associated Physician Practices is amultiple site organization consisting of ambulatory clinics and hospital sitesin [place], [place], [place] and [place]. This disclosure is being madepursuant to the Care Everywhere program and may not contain all information available regarding this patient. Last updated 17.[facility] [employer] Allergies No known active allergies Social History [...]
[2024-09-20] MEDS: HYDROcodone/acetaminophen (*CRX) 5-325 MG TABLET 1 TAB PO (16:06)
[2024-09-20 16:22] LABS: Hematocrit 43.4 % (37.0-47.0); Hemoglobin 13.8 g/dL (12.0-15.0); Immature Granulocyte Percent A 0.4 % (0-0.5); Lymphocytes Absolute Auto 2.34 K/mm3 (0.9-3.2); Mean Corpuscular HGB Conc 31.8 g/dl (32-36); Mean Corpuscular Hemoglobin 28.0 pg (26-34); Mean Corpuscular Volume 88.2 fl (80-100); Nucleated Red Blood Cells Absolute Auto 0.000 K/mm3 (0.0-0.012); Nucleated Red Blood Cells Perc 0.0 % (0.0-0.2); Platelet Count Result 183 k/mm3 (150-375); Red Blood Count 4.92 M/mm3 (4.2-5.4); White Blood Count 9.5 K/mm3 (4.5-10.0)
[2024-09-20 16:36] LABS: Anion Gap 8 mmol/L (4-12); Blood Urea Nitrogen 11 mg/dL (7-17); Calcium 9.9 mg/dL (8.4-10.2); Carbon Dioxide 29 mmol/L (22-30); Chloride 106 mmol/L (98-107); Estimated CRCL calculation 87 ml/min; Estimated Glomerular Filt Rate > 60; Glucose 113 mg/dL (65-110); Potassium 3.9 mmol/L (3.4-5.0); Sodium 143 mmol/L (137-145)
[2024-09-20] MEDS: CEPHALEXIN 500 MG CAPSULE PO (17:05)
[2024-09-20 17:16] VITALS: BP 126/74; PULSE 88; RESP 18; O2SAT 98
== END 2024-09-20 17:18 | disposition home or self-care (01) ==
PROVIDERS: Emergency Provider Student in an Organized Health Care Education/Training Program
DX: L03.311 Cellulitis of abdominal wall (principal)
CPT/HCPCS: 36415; 80048; 85025; 87070; 87205; 99283; A9270